=== PATIENT | female | born 1985 | race Caucasian/White ===

== ENCOUNTER 2017-09-21 08:45 | Observation (INO) | payer MEDICAID ==
[2017-09-21] MEDS ORDERED: Lactated Ringers 1,000 ML IV ONE ×2 (09:08→09:24)
--- NOTE | 2017-09-21 09:17 | ERPHSYRPT ---
- History of Present Illness Time Seen by Provider: 09/21/17 08:48 Source: patient, family (jose alejandro) Physician History: CC: fever Hx: 32 y/o with LMP in February. She is 32+4 weeks by [facility] sonogram with EDC 11-13-17. She has not yet seen Dr Jha for care due to insurance problems. She missed her 1st appt last month as she was out of town. She has 3 prior term C/S. She had 32 week abruptio with C/ S which resulted in . She has 3 day hx of fever to 101.5, chills, malaise. Right sided back pain. No dysuria. Nausea without vomiting or diarrhea. No headache, mild cough, no sore throat. Symptoms moderate. She used tylenol at home with brief relief. She has no cramping, CTX, vaginal bleeding. ALL: Bactrim, eggs Meds: PNV Surg: C/S X 4, melanoma removal from back with lymph node metastasis with resection, currently lost to follow up at [facility]- she has not seen for 1 year. ILL: Prior UTI, no hx o kidney stone disease Social: Smoker Timing/Duration: day(s) (3) Severity: moderate Allergies/Adverse Reactions: egg Allergy (Verified 09/21/17 09:22) Sulfa (Sulfonamide Antibiotics) Allergy (Verified 09/21/17 09:22) Home Medications: Vits W-Ca,Fe,FA(<1Mg) [] 1 each PO DAILY 09/21/17 [History] - Review of Systems Constitutional: Fever, Chills, Malaise Eyes: No Symptoms Ears, Nose, & Throat: No Nose Congestion, No Throat Pain Respiratory: Cough (mild) Abdominal/Gastrointestinal: Nausea, No Abdominal Pain, No Vomiting, No Diarrhea Genitourinary Symptoms: Flank Pain (right), , No Dysuria, No Vaginal Bleeding, No Vaginal Discharge Skin: No Rash Neurological: No Headache All Other Systems: Reviewed and Negative - Past Medical History Pertinent Past Medical History: Yes Other Medical History: 32 Abruptio. Metastatic melanoma - Past Surgical History Past Surgical History: Yes Female Surgical History: Section (X4) Other Surgical History: Back Melanoma resection and lymph node resection - Social History Smoking Status: Current every day smoker Patient Lives Alone: No - Nursing Vital Signs Nursing Vital Signs: Initial Vital Signs Temperature 98.1 F 09/21/17 09:01 Pulse Rate 101 H 09/21/17 09:01 Respiratory Rate 18 09/21/17 09:01 Blood Pressure 106/65 09/21/17 09:01 O2 Sat by Pulse Oximetry 99 09/21/17 09:01 Pain Scale Pain Intensity 3 - Physical Exam General Appearance: alert Eye Exam: PERRL/EOMI Ears, Nose, Throat Exam: normal ENT inspection, dry mucous membranes, No pharyngeal erythema, No tonsillar exudate Neck Exam: normal inspection, non-tender, supple Respiratory Exam: normal breath sounds, lungs clear, No respiratory distress Cardiovascular Exam: regular rate/rhythm Gastrointestinal/Abdomen Exam: soft, No tenderness, No distention, No mass, No guarding Back Exam: normal inspection, CVA tenderness (right) Extremity Exam: normal inspection, normal range of motion, No calf tenderness, No pedal edema Neurologic Exam: alert, oriented x 3, cooperative, habilitation specialist II-XII nml as tested, sensation nml, No motor deficits Skin Exam: warm, dry, No rash - Course Nursing assessment & vital signs reviewed: Yes Ordered Tests: Active Orders 24 hr Category Date Time Status Clean Catch Urine Specimen STAT Care 09/21/17 08:50 Active Heart Tones-ED STAT Care 09/21/17 08:50 Active IV Insertion STAT Care 09/21/17 09:08 Active BLOOD CULTURE Stat Lab 09/21/17 09:15 Received CBC W DIFF Stat Lab 09/21/17 09:12 Completed CMP Stat Lab 09/21/17 09:12 Completed CULTURE,URINE Stat Lab 09/21/17 09:20 Received Lactic Acid Stat Lab 09/21/17 09:15 Completed Manual Differential NC Stat Lab 09/21/17 09:12 Completed UA W/ MICROSCOPIC Stat Lab 09/21/17 09:20 Completed Urine Triage Profile Stat Lab 09/21/17 09:30 Completed Medication Summary Generic Name Dose Route Start Last Admin Trade Name Freq PRN Reason Stop Dose Admin Sodium Chloride 1,000 mls @ 999 mls/hr 09/21/17 10:01 09/21/17 10:38 Sodium Chloride 0.9% 1000 Ml IV 09/21/17 11:01 999 mls/hr .Q1H1M STA Administration Discontinued Medications Generic Name Dose Route Start Last Admin Trade Name Freq PRN Reason Stop Dose Admin Lactated Ringer's 1,000 mls @ 999 mls/hr 09/21/17 09:08 09/21/17 09:27 Lactated Ringers IV 09/21/17 10:08 999 mls/hr .Q1H1M ONE Administration Lactated Ringer's Confirm 09/21/17 09:24 Lactated Ringers Administered 09/21/17 09:25 Dose 1,000 mls @ ud IV .STK-MED ONE Ceftriaxone Sodium/Dextrose 1 g in 50 mls @ 100 mls/hr 09/21/17 10:01 10:37 Rocephin 1 Gm-D5w 50 Ml Bag IV 09/21/17 10:30 100 mls/hr STAT STA Administration Sodium Chloride Confirm 09/21/17 10:36 Sodium Chloride 0.9% 1000 Ml Administered 09/21/17 10:37 Dose 1,000 mls @ ud .ROUTE .STK-MED ONE Ceftriaxone Sodium/Dextrose Confirm 09/21/17 10:36 Rocephin 1 Gm-D5w 50 Ml Bag Administered 09/21/17 10:37 Dose 1 g in 50 mls @ ud IV .STK-MED ONE Lab/Rad Data: Laboratory Result Diagrams 09/21/17 09:12 09/21/17 09:12 Laboratory Results 09/21/17 09/21/17 09/21/17 Range/Units 09:30 09:20 09:15 WBC (4.0-10.5) K/mm3 RBC (4.1-5.4) M/mm3 Hgb (12.0-16.0) gm/dl Hct (35-47) % MCV (78-100) fl MCH (26-32) pg MCHC (32-36) g/dl RDW (11.5-14.0) % Plt Count (150-450) K/mm3 MPV (6-9.5) fl Segmented Neutrophils (36.0-66.0) % Lymphocytes (Manual) (24-44) % Monocytes (Manual) (0.0-12.0) % Eosinophils (Manual) (0.00-3.0) % Differential Comment Toxic Granulation Platelet Estimate (NORMAL) Sodium (136-145) mEq/L Potassium (3.5-5.1) mEq/L Chloride (98-107) mEq/L Carbon Dioxide (21-32) mEq/L Anion Gap (5-15) MEQ/L BUN (9-20) mg/dL Creatinine (0.55-1.30) mg/dl Estimated GFR ML/MIN Glucose (70-110) MG/DL Lactic Acid 1.5 (0.4-2.0) Calcium (8.5-10.1) mg/dL Total Bilirubin (0.2-1.0) mg/dL AST (15-37) U/L ALT (12-78) U/L Alkaline Phosphatase (46-116) U/L Serum Total Protein (6.4-8.2) gm/dL Albumin (3.4-5.0) g/dL Ur Collection Type VOID Urine Color DARK YELLOW (YELLOW) Urine Appearance HAZY (CLEAR) Urine pH 6.0 (5-6) Ur Specific [place] 1.015 (1.005-1.025) Urine Protein 2+ (Negative) Urine Ketones NEGATIVE (NEGATIVE) Urine Blood 250 (0-5) Sd/ul Urine Nitrite NEGATIVE (NEGATIVE) Urine Bilirubin SMALL (NEGATIVE) Urine Urobilinogen 4 (0-1) mg/dL Ur Leukocyte Esterase 2+ (NEGATIVE) Urine Microscopic RBC 5-10 (0-2) /HPF Urine Microscopic WBC 25-50 (0-5) /HPF Ur Epithelial Cells MANY (FEW) /HPF Urine Bacteria MODERATE (NEGATIVE) /HPF Urine Culture Reflexed YES (NO) Urine Glucose NEGATIVE (NEGATIVE) mg/dL Urine Opiates Level NEG. (NEGATIVE) Ur Methadone NEG. (NEGATIVE) Urine Barbiturates NEG. (NEGATIVE) Ur Phencyclidine (PCP) NEG. (NEGATIVE) Urine Amphetamine NEG. (NEGATIVE) U Benzodiazepine Level POS. (NEGATIVE) Urine Cocaine NEG. (NEGATIVE) Urine Marijuana (THC) POS. (NEGATIVE) Influenza Type A Ag Influenza Type B Ag RSV (PCR) (Negative) Specimen Received 09/21/17 0920 ABO Group Rh Factor Antibody Screen (NEGATIVE) 09/21/17 09/21/17 09/21/17 Range/Units 09:12 09:12 09:12 WBC 11.8 H (4.0-10.5) K/mm3 RBC 3.38 L (4.1-5.4) M/mm3 Hgb 10.5 L (12.0-16.0) gm/dl Hct 31.3 L (35-47) % MCV 92.6 (78-100) fl MCH 31.0 (26-32) pg MCHC 33.5 (32-36) g/dl RDW 13.5 (11.5-14.0) % Plt Count 84 L (150-450) K/mm3 MPV 12.2 H (6-9.5) fl Segmented Neutrophils 82 H (36.0-66.0) % Lymphocytes (Manual) 14 L (24-44) % Monocytes (Manual) 3 (0.0-12.0) % Eosinophils (Manual) 1 (0.00-3.0) % Differential Comment NORMAL Toxic Granulation 1+ Platelet Estimate DECREASED (NORMAL) Sodium (136-145) mEq/L Potassium (3.5-5.1) mEq/L Chloride (98-107) mEq/L Carbon Dioxide (21-32) mEq/L Anion Gap (5-15) MEQ/L BUN (9-20) mg/dL Creatinine (0.55-1.30) mg/dl Estimated GFR ML/MIN Glucose (70-110) MG/DL Lactic Acid (0.4-2.0) Calcium (8.5-10.1) mg/dL Total Bilirubin (0.2-1.0) mg/dL AST (15-37) U/L ALT (12-78) U/L Alkaline Phosphatase (46-116) U/L Serum Total Protein (6.4-8.2) gm/dL Albumin (3.4-5.0) g/dL Ur Collection Type Urine Color (YELLOW) Urine Appearance (CLEAR) Urine pH (5-6) Ur Specific [place] (1.005-1.025) Urine Protein (Negative) Urine Ketones (NEGATIVE) Urine Blood (0-5) Sd/ul Urine Nitrite (NEGATIVE) Urine Bilirubin (NEGATIVE) Urine Urobilinogen (0-1) mg/dL Ur Leukocyte Esterase (NEGATIVE) Urine Microscopic RBC (0-2) /HPF Urine Microscopic WBC (0-5) /HPF Ur Epithelial Cells (FEW) /HPF Urine Bacteria (NEGATIVE) /HPF Urine Culture Reflexed (NO) Urine Glucose (NEGATIVE) mg/dL Urine Opiates Level (NEGATIVE) Ur Methadone (NEGATIVE) Urine Barbiturates (NEGATIVE) Ur Phencyclidine (PCP) (NEGATIVE) Urine Amphetamine (NEGATIVE) U Benzodiazepine Level (NEGATIVE) Urine Cocaine (NEGATIVE) Urine Marijuana (THC) (NEGATIVE) Influenza Type A Ag Pending Influenza Type B Ag Pending RSV (PCR) NEGATIVE (Negative) Specimen Received ABO Group A Rh Factor POSITIVE Antibody Screen NEGATIVE (NEGATIVE) 09/21/17 Range/Units 09:12 WBC (4.0-10.5) K/mm3 RBC (4.1-5.4) M/mm3 Hgb (12.0-16.0) gm/dl Hct (35-47) % MCV (78-100) fl MCH (26-32) pg MCHC (32-36) g/dl RDW (11.5-14.0) % Plt Count (150-450) K/mm3 MPV (6-9.5) fl Segmented Neutrophils (36.0-66.0) % Lymphocytes (Manual) (24-44) % Monocytes (Manual) (0.0-12.0) % Eosinophils (Manual) (0.00-3.0) % Differential Comment Toxic Granulation Platelet Estimate (NORMAL) Sodium 138 (136-145) mEq/L Potassium 3.6 (3.5-5.1) mEq/L Chloride 104 (98-107) mEq/L Carbon Dioxide 21.9 (21-32) mEq/L Anion Gap 15.2 H (5-15) MEQ/L BUN 7 L (9-20) mg/dL Creatinine 0.76 (0.55-1.30) mg/dl Estimated GFR > 60 ML/MIN Glucose 115 H (70-110) MG/DL Lactic Acid (0.4-2.0) Calcium 8.2 L (8.5-10.1) mg/dL Total Bilirubin 0.50 (0.2-1.0) mg/dL AST 13 L (15-37) U/L ALT 13 (12-78) U/L Alkaline Phosphatase 119 H (46-116) U/L Serum Total Protein 6.3 L (6.4-8.2) gm/dL Albumin 2.4 L (3.4-5.0) g/dL Ur Collection Type Urine Color (YELLOW) Urine Appearance (CLEAR) Urine pH (5-6) Ur Specific [place] (1.005-1.025) Urine Protein (Negative) Urine Ketones (NEGATIVE) Urine Blood (0-5) Sd/ul Urine Nitrite (NEGATIVE) Urine Bilirubin (NEGATIVE) Urine Urobilinogen (0-1) mg/dL Ur Leukocyte Esterase (NEGATIVE) Urine Microscopic RBC (0-2) /HPF Urine Microscopic WBC (0-5) /HPF Ur Epithelial Cells (FEW) /HPF Urine Bacteria (NEGATIVE) /HPF Urine Culture Reflexed (NO) Urine Glucose (NEGATIVE) mg/dL Urine Opiates Level (NEGATIVE) Ur Methadone (NEGATIVE) Urine Barbiturates (NEGATIVE) Ur Phencyclidine (PCP) (NEGATIVE) Urine Amphetamine (NEGATIVE) U Benzodiazepine Level (NEGATIVE) Urine Cocaine (NEGATIVE) Urine Marijuana (THC) (NEGATIVE) Influenza Type A Ag Influenza Type B Ag RSV (PCR) (Negative) Specimen Received ABO Group Rh Factor Antibody Screen (NEGATIVE) - Progress Progress Note: 09/21/17 10:46 Stable but appears to have pyelonephritis right. She is 32 weeks , high risk with no care. Urine positive for benzo and THC which are not reported to be prescribed. CAlled Dr Blackburn (oc) and will place in obs for NST, IV abtx, IVF. Discussed with : Alexey Will see patient in: hospital (observation) Counseled pt/family regarding: lab results, diagnosis, need for follow-up - Departure Time of Disposition: 10:47 Departure Disposition: Observation Clinical Impression: Pyelonephritis affecting in third trimester, No care in current , Polysubstance abuse, Thrombocytopenia affecting Condition: Fair Critical Care Time: No
[2017-09-21 09:22] VITALS: O2SAT 99
[2017-09-21 09:36] LABS: Mean Cell Volume 92.6 fl (78-100); Mean Platelet Volume 12.2 fl (6-9.5); Platelet Count 84 K/mm3 (150-450); Red Blood Count 3.38 M/mm3 (4.1-5.4); Red Cell Distribution Width 13.5 % (11.5-14.0); White Blood Count 11.8 K/mm3 (4.0-10.5)
[2017-09-21 09:45] LABS: ADD URINE CULTURE? YES (NO); Bacteria MODERATE /HPF (NEGATIVE); Bilirubin SMALL (NEGATIVE); Blood 250 Ery/ul (0-5); COMPLETE URINE MICROSCOPIC? YES; Collection Type VOID; Epithelial Cells MANY /HPF (FEW); Glucose NEGATIVE (NEGATIVE); Leukocyte Esterase 2+ (NEGATIVE); WBC 25-50 /HPF (0-5)
[2017-09-21 09:57] LABS: ALBUMIN 2.4 g/dL (3.4-5.0); ALKALINE PHOSPHATASE 119 U/L (46-116); ANION GAP 15.2 MEQ/L (5-15); BLOOD UREA NITROGEN 7 mg/dL (9-20); CHLORIDE 104 mEq/L (98-107); Carbon Dioxide 21.9 mEq/L (21-32); Glucose 115 MG/DL (70-110); Potassium 3.6 mEq/L (3.5-5.1); SGOT/AST 13 U/L (15-37); SGPT/ALT 13 U/L (12-78); SODIUM 138 mEq/L (136-145); Total Protein 6.3 gm/dL (6.4-8.2)
[2017-09-21 10:01] LABS: Eosinophil 1 % (0.00-3.0); Platelet Estimate DECREASED (NORMAL); Total Cells Counted 100; Toxic Granulation 1+
[2017-09-21] MEDS ORDERED: Sodium Chloride 0.9% 1000 ML 1,000 ML IV STA (10:01)
[2017-09-21] MEDS ORDERED: ROCEPHIN 1 Gm-D5w 50 ml Bag** 1 G/50 ML IVPB IV STA (10:01)
[2017-09-21] MEDS ORDERED: Sodium Chloride 0.9% 1000 ML 1,000 ML ONE ×2 (10:36→18:56)
[2017-09-21] MEDS ORDERED: ROCEPHIN 1 Gm-D5w 50 ml Bag** 1 G/50 ML IVPB IV ONE (10:36)
[2017-09-21] MEDS ORDERED: D5W/0.45NS W/ 20mEq KCl 1000 ML 1,000 ML IV SCH (11:53)
[2017-09-21] MEDS ORDERED: TYLENOL 325 MG PO PRN (11:53)
[2017-09-21] MEDS ORDERED: MORPHINE SULFATE 4 MG INJ IV PRN (13:22)
[2017-09-21] MEDS: Zofran 4 MG/2 ML VIAL IV PRN ×2 (16:06→21:55)
--- NOTE | 2017-09-21 18:40 | PCM.HP ---
History of Present Illness - Chief Complaint Chief Complaint: pyelonephritis History of Present Illness: is a 32 year old female who presented to the ER today with a known 32 weeks , she has received no care. She has had severe right flank pain and fever, some nausea, vomited x 1 today. She denies dysuria, hx of 3 prior sections and a placental abruption at 32 weeks. She states she has not been seen due to insurance reasons. states she has anxiety and has been on klonopin for a long time, sounds like she is not currently prescribed it but admits to taking some about a week ago, triage + benzos and marijuana. - Review of Systems Constitutional: Fever, Chills Cardiac: No Chest Pain, No Edema, No Syncope Abdominal/Gastrointestinal: No Abdominal Pain, No Nausea, No Vomiting, No Diarrhea Genitourinary Symptoms: Flank Pain, No Dysuria, No Frequency Skin: No Rash Medications & Allergies Home Medications: Home Medication List Vits W-Ca,Fe,FA(<1Mg) [] 1 each PO DAILY 09/21/17 [History Confirmed 09/21/17] Allergies/Adverse Reactions: Allergies Allergy/AdvReac Type Severity Reaction Status Date / Time egg Allergy Verified 09/21/17 09:22 Sulfa (Sulfonamide Allergy Verified 09/21/17 09:22 Antibiotics) sulfamethoxazole Allergy Verified 09/21/17 13:23 [From Bactrim] trimethoprim [From Bactrim] Allergy Verified 09/21/17 13:23 - Past Medical History Past Medical History: Yes Pyscho-Social History: Anxiety, Depression Comment: 32 Abruptio. Metastatic melanoma - Female History Hx Last Menstrual Period: 02/11/17 Are you now?: Yes Expected Date of Delivery: 11/13/17 - Past Surgical History Past Surgical History: Yes Female Surgical History: Section Other Surgical History: Back Melanoma resection and lymph node resection - Social History Smoking Status: Current some day smoker How long have you smoked: 6years Exposure to second hand smoke: No Alcohol: None Drug Use: none - Physical Exam Vital Signs: Vital Signs - 24 hr Temp Pulse Resp BP BP Pulse Ox 09/21/17 15:15 99.9 F 107 H 18 105/88 09/21/17 12:40 99.0 F 92 H 18 122/62 09/21/17 12:25 99.0 F 92 H 18 122/62 09/21/17 11:20 84 18 104/57 09/21/17 10:02 84 18 106/59 09/21/17 09:01 98.1 F 101 H 18 106/65 99 General Appearance: no apparent distress, alert Eye Exam: PERRL/EOMI, eyes nml inspection Respiratory Exam: normal breath sounds, lungs clear, No respiratory distress Cardiovascular Exam: regular rate/rhythm, normal heart sounds, normal peripheral pulses Gastrointestinal/Abdomen Exam: soft (gravid), normal bowel sounds, No tenderness , No mass Back Exam: CVA tenderness (right) Skin Exam: normal color, warm, dry, No rash Assessment/Plan (1) Pyelonephritis affecting in third trimester Current Visit: Yes Status: Acute Assessment & Plan: continue IV fluids and rocephin, await urine culture. Code(s): O23.03 - INFECTIONS OF KIDNEY IN , THIRD TRIMESTER (2) No care in current Current Visit: Yes Status: Acute Code(s): O09.30 - SUPRVSN OF PREG W INSUFFICIENT ANTENAT CARE, UNSP TRIMESTER (3) Polysubstance abuse Current Visit: Yes Status: Acute Assessment & Plan: discussed use, patient claims rare/intermittent use and no concern for withdrawal, will observe closely. discussed risks in , OB u/s ordered. Code(s): F19.10 - OTHER PSYCHOACTIVE SUBSTANCE ABUSE, UNCOMPLICATED
[2017-09-21] MEDS: Morphine PCA 1 MG/ML 30 ML IV PRN (19:48)
[2017-09-21] MEDS: Sodium Chloride 0.9% 1000 ML 1,000 ML IV SCH (19:54)
[2017-09-21 23:22] LABS: CHLAMYDIA URINE NEGATIVE; GC URINE NEGATIVE
[2017-09-22 05:22] LABS: Mean Cell Volume 93.5 fl (78-100); Mean Corpuscular Hemoglobin 30.7 pg (26-32); Platelet Count 84 K/mm3 (150-450); Red Blood Count 2.93 M/mm3 (4.1-5.4); Red Cell Distribution Width 13.4 % (11.5-14.0); White Blood Count 8.3 K/mm3 (4.0-10.5)
[2017-09-22 06:07] LABS: ALBUMIN 1.9 g/dL (3.4-5.0); ALKALINE PHOSPHATASE 104 U/L (46-116); ANION GAP 11.2 MEQ/L (5-15); BLOOD UREA NITROGEN 7 mg/dL (9-20); CHLORIDE 106 mEq/L (98-107); Carbon Dioxide 24.2 mEq/L (21-32); Glucose 89 MG/DL (70-110); Potassium 3.9 mEq/L (3.5-5.1); SGOT/AST 10 U/L (15-37); SGPT/ALT 8 U/L (12-78); SODIUM 138 mEq/L (136-145); Total Protein 5.4 gm/dL (6.4-8.2)
[2017-09-22 08:33] LABS: ANISOCYTOSIS 1+; Platelet Estimate DECREASED (NORMAL); Total Cells Counted 100; Toxic Granulation 1+
--- NOTE | 2017-09-22 08:57 | XRAY ---
Indication: Right pyelonephritis. No care. Two-dimensional OB ultrasound performed. Comparison: None There is a single viable intrauterine currently in cephalic presentation. Normal four-chamber heart with heart rate 145 BPM. Normal three-vessel cord and cord insertion. Visualized head, spine, stomach, kidneys, and bladder unremarkable. Placenta is anterior without abruption/previa. BPD measures 8.21 cm corresponding to 33 weeks 0 days. HC measures 29.24 cm corresponding to 32 weeks 2 days. AC measures 28.28 cm corresponding to 32 weeks 2 days. FL measures 6.31 cm corresponding to 32 weeks 4 days. EDDI is 15 cm. Impression: Single viable intrauterine with mean gestational age 32 weeks 4 days. Expected date confinement is November 12, 2017. Comment: Preliminary report was given.
--- NOTE | 2017-09-22 08:58 | XRAY ---
Indication: Right pyelonephritis. . Two-dimensional renal sonogram performed. Comparison: None Right kidney measures 12.5 x 6.7 x 4.7 cm and the left measures 12.7 x 5.2 x 5.3 cm. Right kidney demonstrates wedge-shaped cortical hypoechogenicities with hyperemic color Doppler flow favoring focal pyelonephritis. Right kidney also demonstrates mild hydronephrosis and tiny perinephric fluid. Left kidney demonstrates 1.2 cm lower pole cyst. Images of the urinary bladder grossly unremarkable. Impression: 1. Sonographic features as detailed favoring right renal pyelonephritis with tiny perinephric fluid. Also mild hydronephrosis of . 2. Left renal cyst. Comment: Preliminary report was given.
[2017-09-22] MEDS: ROCEPHIN 1 Gm-D5w 50 ml Bag** 1 G/50 ML IVPB IV SCH (10:02)
--- NOTE | 2017-09-22 11:52 | PCM.NOTE ---
Date and Time: 09/22/17 1150 Subjective Assessment: patient feeling a little better today, still having some flank pain. no fever today, tolerating po intake Objective Exam General Appearance: no apparent distress, alert Respiratory Exam: normal breath sounds, lungs clear, No respiratory distress Cardiovascular Exam: regular rate/rhythm, normal heart sounds Gastrointestinal/Abdomen Exam: soft, No tenderness, No mass Back Exam: CVA tenderness OBJECTIVE DATA Vital Signs: Vital Signs - 24 hr Temp Pulse Resp BP BP 09/22/17 09:00 98.7 F 97 H 18 103/56 09/22/17 03:00 97.5 F 73 18 105/57 09/21/17 21:00 98.2 F 89 18 101/64 09/21/17 15:15 99.9 F 107 H 18 105/88 09/21/17 12:40 99.0 F 92 H 18 122/62 09/21/17 12:25 99.0 F 92 H 18 122/62 Pain Assessment - Last Documented Pain Intensity 6 Pain Scale Used Ash Solis,FLACC Intake and Output: Intake & Output 09/19/17 09/20/17 09/21/17 09/22/17 11:59 11:59 11:59 11:59 Intake Total 2491 Balance 2491 Weight 78.018 kg Lab Results: Lab Results-Last 24 Hours 09/21/17 09/22/17 09/22/17 Range/Units 20:30 05:19 05:19 WBC 8.3 (4.0-10.5) K/mm3 RBC 2.93 L (4.1-5.4) M/mm3 Hgb 9.0 L (12.0-16.0) gm/dl Hct 27.4 L (35-47) % MCV 93.5 (78-100) fl MCH 30.7 (26-32) pg MCHC 32.8 (32-36) g/dl RDW 13.4 (11.5-14.0) % Plt Count 84 L (150-450) K/mm3 MPV 12.0 H (6-9.5) fl Segmented Neutrophils 71 H (36.0-66.0) % Lymphocytes (Manual) 21 L (24-44) % Monocytes (Manual) 8 (0.0-12.0) % Differential Comment ABNORMAL Toxic Granulation 1+ Platelet Estimate DECREASED (NORMAL) Anisocytosis 1+ Sodium 138 (136-145) mEq/L Potassium 3.9 (3.5-5.1) mEq/L Chloride 106 (98-107) mEq/L Carbon Dioxide 24.2 (21-32) mEq/L Anion Gap 11.2 (5-15) MEQ/L BUN 7 L (9-20) mg/dL Creatinine 0.73 (0.55-1.30) mg/dl Estimated GFR > 60 ML/MIN Glucose 89 (70-110) MG/DL Calcium 7.6 L (8.5-10.1) mg/dL Total Bilirubin 0.30 (0.2-1.0) mg/dL AST 10 L (15-37) U/L ALT 8 L (12-78) U/L Alkaline Phosphatase 104 (46-116) U/L Serum Total Protein 5.4 L (6.4-8.2) gm/dL Albumin 1.9 L (3.4-5.0) g/dL Ur Chlamydia DNA Probe NEGATIVE Urine GC DNA Probe NEGATIVE Assessment/Plan (1) Pyelonephritis affecting in third trimester Current Visit: Yes Status: Acute Assessment & Plan: continue rocephin, c and s pending. Code(s): O23.03 - INFECTIONS OF KIDNEY IN , THIRD TRIMESTER (2) No care in current Current Visit: Yes Status: Acute Assessment & Plan: ob u/s with no abnormalities Code(s): O09.30 - SUPRVSN OF PREG W INSUFFICIENT ANTENAT CARE, UNSP TRIMESTER (3) Polysubstance abuse Current Visit: Yes Status: Acute Code(s): F19.10 - OTHER PSYCHOACTIVE SUBSTANCE ABUSE, UNCOMPLICATED
[2017-09-22] MEDS: Morphine PCA 1 MG/ML 30 ML IV PRN (17:03)
[2017-09-22] MEDS: Sodium Chloride 0.9% 1000 ML 1,000 ML IV SCH (17:04)
[2017-09-22] MEDS: Colace 100 MG PO SCH (21:55)
[2017-09-22] MEDS: FEOSOL 325 MG PO SCH (21:55)
[2017-09-23] MEDS ORDERED: Norco 10/325 MG Tablet PO PRN (08:29)
--- NOTE | 2017-09-23 08:35 | PCM.NOTE ---
Date and Time: 09/23/17 0830 Subjective Assessment: SHe is still having 5/10 R flank pain better with morphine FLOORPERSON. Had morphine about 10 times overnight. Denies nausea. Tolerating po. - Review of Systems Constitutional: No Fever Abdominal/Gastrointestinal: Other (flank pain) Objective Exam General Appearance: no apparent distress, alert Neurologic Exam: oriented x 3, cooperative Skin Exam: warm, dry Respiratory Exam: normal breath sounds, No lungs clear, No crackles/rales, No rhonchi, No wheezing Cardiovascular Exam: regular rate/rhythm, normal heart sounds, No murmur Gastrointestinal/Abdomen Exam: soft, other (gravid), No normal bowel sounds Extremity Exam: No pedal edema, No swelling (ELVA hose in place) Back Exam: CVA tenderness (on R) OBJECTIVE DATA Vital Signs: Vital Signs - 24 hr Temp Pulse Resp BP 09/23/17 03:00 71 18 98/58 09/22/17 20:00 97.8 F 86 18 103/60 09/22/17 09:00 98.7 F 97 H 18 103/56 Pain Assessment - Last Documented Pain Intensity 2 Pain Scale Used Ash Faces,FLACC Intake and Output: Intake & Output 09/20/17 09/21/17 09/22/17 09/23/17 11:59 11:59 11:59 11:59 Intake Total 2491 5689 Balance 2491 5689 Weight 78.018 kg Lab Results: Lab Results-Last 24 Hours 09/22/17 Range/Units 05:19 Segmented Neutrophils 71 H (36.0-66.0) % Lymphocytes (Manual) 21 L (24-44) % Monocytes (Manual) 8 (0.0-12.0) % Differential Comment ABNORMAL Toxic Granulation 1+ Platelet Estimate DECREASED (NORMAL) Anisocytosis 1+ Assessment/Plan (1) Pyelonephritis affecting in third trimester Current Visit: Yes Status: Acute Assessment & Plan: on IV rocephin. UCx with probable skin rory. She is still having quite a bit of pain -try treating with po pain meds today. Code(s): O23.03 - INFECTIONS OF KIDNEY IN , THIRD TRIMESTER (2) Polysubstance abuse Current Visit: Yes Status: Acute Code(s): F19.10 - OTHER PSYCHOACTIVE SUBSTANCE ABUSE, UNCOMPLICATED (3) No care in current Current Visit: Yes Status: Acute Qualifiers: Trimester: third trimester Qualified Code(s): O09.33 - Supervision of with insufficient care, third trimester Assessment & Plan: Coming to see me in follow up outpatient. Code(s): O09.30 - SUPRVSN OF PREG W INSUFFICIENT ANTENAT CARE, UNSP TRIMESTER (4) Thrombocytopenia affecting Current Visit: Yes Status: Acute Assessment & Plan: Recheck today. Unsure if this is chronic. Code(s): O99.119 - OTH DIS OF BLD/BLD-FORM ORG/IMMUN MECHNSM COMP PREG,UNSP TRI ; D69.6 - THROMBOCYTOPENIA, UNSPECIFIED
[2017-09-23] MEDS: FEOSOL 325 MG PO SCH (09:05)
[2017-09-23] MEDS: Colace 100 MG PO SCH (09:05)
[2017-09-23] MEDS: ROCEPHIN 1 Gm-D5w 50 ml Bag** 1 G/50 ML IVPB IV SCH (09:05)
[2017-09-23 09:11] LABS: BASOPHIL % 0.1 % (0.0-0.4); Eosinophil % 1.6 % (0.00-5.0); Granulocytes % 77.5 % (36.0-66.0); Lymphocytes % 15.7 % (24.0-44.0); Mean Cell Volume 92.9 fl (78-100); Mean Platelet Volume 11.8 fl (6-9.5); Monocytes % 5.1 % (0.0-12.0); Platelet Count 102 K/mm3 (150-450); Red Cell Distribution Width 13.4 % (11.5-14.0); White Blood Count 7.6 K/mm3 (4.0-10.5)
[2017-09-23 09:40] LABS: ALBUMIN 2.2 g/dL (3.4-5.0); ALKALINE PHOSPHATASE 131 U/L (46-116); ANION GAP 11.6 MEQ/L (5-15); BLOOD UREA NITROGEN 6 mg/dL (9-20); CHLORIDE 103 mEq/L (98-107); Carbon Dioxide 26.4 mEq/L (21-32); Glucose 115 MG/DL (70-110); Potassium 3.7 mEq/L (3.5-5.1); SGOT/AST 12 U/L (15-37); SGPT/ALT 11 U/L (12-78); SODIUM 137 mEq/L (136-145); Total Protein 6.3 gm/dL (6.4-8.2)
[2017-09-23] MEDS: Zofran 4 MG/2 ML VIAL IV PRN (09:45)
[2017-09-23 09:52] LABS: Mean Corpuscular Hemoglobin 30.5 pg (26-32)
[2017-09-23 11:18] VITALS: BP 99/65; PULSE 88
[2017-09-25 12:50] LABS: Hepatitis B Sur Ag Screen Reac-confirmed (Non Reactive)
== END 2017-09-23 14:25 | disposition home or self-care (01) ==
LOC: ED 08:45 → MED SURG 11:31
PROVIDERS: ADMIT Family Medicine; ATTEND Family Medicine
DX: O23.03 Infections of kidney in pregnancy, third trimester (principal); O09.33 Supervision of pregnancy with insufficient antenatal care, third trimester; Z3A.32 32 weeks gestation of pregnancy; F19.10 Other psychoactive substance abuse, uncomplicated; F41.8 Other specified anxiety disorders; Z72.0 Tobacco use
CPT/HCPCS: 36000; 36415; 59025; 76770; 76805; 80053; 80055; 80307; 81000; 83605; 85025; 87040; 87086; 87491; 87591; 87631; 96360; 96361; 96365; 99285; G0378; J0696; J2270; J2405; A9270-GY

== ENCOUNTER 2017-10-01 13:44 | Observation (INO) | payer MEDICAID ==
[2017-10-01] MEDS ORDERED: Lactated Ringers 1,000 ML IV SCH (14:00)
[2017-10-01 14:14] LABS: Mean Cell Volume 91.3 fl (78-100); Mean Corpuscular Hemoglobin 30.4 pg (26-32); Mean Platelet Volume 10.7 fl (6-9.5); Platelet Count 206 K/mm3 (150-450); Red Blood Count 3.32 M/mm3 (4.1-5.4); Red Cell Distribution Width 13.3 % (11.5-14.0); White Blood Count 13.5 K/mm3 (4.0-10.5)
[2017-10-01 14:39] LABS: ALBUMIN 2.6 g/dL (3.4-5.0); ALKALINE PHOSPHATASE 127 U/L (46-116); ANION GAP 13.3 MEQ/L (5-15); BLOOD UREA NITROGEN 11 mg/dL (9-20); CHLORIDE 103 mEq/L (98-107); Carbon Dioxide 24.1 mEq/L (21-32); Glucose 93 MG/DL (70-110); Potassium 3.7 mEq/L (3.5-5.1); SGOT/AST 12 U/L (15-37); SGPT/ALT 16 U/L (12-78); SODIUM 137 mEq/L (136-145); Total Protein 6.6 gm/dL (6.4-8.2)
[2017-10-01 16:24] LABS: Eosinophil 1 % (0.00-3.0); Total Cells Counted 100
[2017-10-01 16:25] LABS: Platelet Estimate NORMAL (NORMAL); Toxic Granulation 1+
[2017-10-01] MEDS: Lactated Ringers 1,000 ML IV SCH (16:46)
[2017-10-01] MEDS: Norco 10/325 MG Tablet PO PRN ×2 (18:04→22:28)
[2017-10-01] MEDS ORDERED: Zofran 4 MG/2 ML VIAL IV PRN (20:53)
[2017-10-01] MEDS ORDERED: Invanz 1 GM*** 1 G in Sodium Chloride 100ML MINI-BAG PLUS 100 ML IV SCH (21:00)
[2017-10-02] MEDS: Lactated Ringers 1,000 ML IV SCH ×2 (00:16→08:56)
[2017-10-02 06:24] LABS: ANION GAP 13.9 MEQ/L (5-15); BLOOD UREA NITROGEN 6 mg/dL (9-20); CHLORIDE 104 mEq/L (98-107); Carbon Dioxide 24.1 mEq/L (21-32); Glucose 81 MG/DL (70-110); SODIUM 138 mEq/L (136-145)
[2017-10-02 06:28] LABS: BASOPHIL % 0.2 % (0.0-0.4); Eosinophil % 1.8 % (0.00-5.0); Granulocytes % 66.9 % (36.0-66.0); Lymphocytes % 26.3 % (24.0-44.0); Mean Cell Volume 92.7 fl (78-100); Mean Platelet Volume 11.1 fl (6-9.5); Monocytes % 4.8 % (0.0-12.0); Platelet Count 163 K/mm3 (150-450); Red Blood Count 3.16 M/mm3 (4.1-5.4); Red Cell Distribution Width 13.5 % (11.5-14.0); White Blood Count 10.8 K/mm3 (4.0-10.5)
[2017-10-02 06:57] LABS: Mean Corpuscular Hemoglobin 30.3 pg (26-32)
[2017-10-02] MEDS: Norco 10/325 MG Tablet PO PRN ×2 (07:37→12:16)
--- NOTE | 2017-10-02 08:46 | PCM.DS ---
Discharge Summary Date of Admission: 10/01/17 13:44 Admitting Physician: CANDY BARFIELD Primary Care Provider: CANDY BARFIELD Allergies Allergies egg Allergy (Verified 09/21/17 09:22) Sulfa (Sulfonamide Antibiotics) Allergy (Verified 09/21/17 09:22) sulfamethoxazole [From Bactrim] Allergy (Verified 09/21/17 13:23) trimethoprim [From Bactrim] Allergy (Verified 09/21/17 13:23) Hospital Summary - Hospital Course Hospital Course: She was admitted from the office with recurring sx of her recent pyelonephritis - back pain, fatigue, fever, nausea. She was treated with rocephin and the culture was negative. She was admitted for IV antibiotics yesterday, however mistakenly they were not ordered until last night. Her WBC were 13.5 yesterday and 10.8 this morning. She is feeling better. Renal u/s done this morning. Will be discharged after getting PICC line placed today as her IV access was quite difficult. - Vitals & Intake/Output Vital Signs: Vital Signs Temperature 98 F 10/02/17 07:00 Pulse Rate 68 10/02/17 07:00 Respiratory Rate 20 10/02/17 07:00 Blood Pressure 125/59 10/02/17 07:00 O2 Sat by Pulse Oximetry 98 10/02/17 07:00 Intake & Output: Intake & Output 09/29/17 09/30/17 10/01/17 10/02/17 11:59 11:59 11:59 11:59 Intake Total 1949 Output Total 1000 Balance 949 Weight 90.038 kg - Lab Result Diagrams: 10/02/17 05:25 10/02/17 05:25 Lab Results-Last 24 Hrs: Lab Results-Last 24 Hours 10/01/17 10/01/17 10/01/17 Range/Units 14:08 14:08 14:08 WBC 13.5 H (4.0-10.5) K/mm3 RBC 3.32 L (4.1-5.4) M/mm3 Hgb 10.1 L (12.0-16.0) gm/dl Hct 30.3 L (35-47) % MCV 91.3 (78-100) fl MCH 30.4 (26-32) pg MCHC 33.3 (32-36) g/dl RDW 13.3 (11.5-14.0) % Plt Count 206 (150-450) K/mm3 MPV 10.7 H (6-9.5) fl Gran % (36.0-66.0) % Lymphocytes % (24.0-44.0) % Monocytes % (0.0-12.0) % Eosinophils % (0.00-5.0) % Basophils % (0.0-0.4) % Segmented Neutrophils 77 H (36.0-66.0) % Lymphocytes (Manual) 19 L (24-44) % Monocytes (Manual) 3 (0.0-12.0) % Eosinophils (Manual) 1 (0.00-3.0) % Basophils # (0-0.4) Differential Comment NORMAL Toxic Granulation 1+ Platelet Estimate NORMAL (NORMAL) Sodium 137 (136-145) mEq/L Potassium 3.7 (3.5-5.1) mEq/L Chloride 103 (98-107) mEq/L Carbon Dioxide 24.1 (21-32) mEq/L Anion Gap 13.3 (5-15) MEQ/L BUN 11 (9-20) mg/dL Creatinine 0.78 (0.55-1.30) mg/dl Estimated GFR > 60 ML/MIN Glucose 93 (70-110) MG/DL Calcium 9.0 (8.5-10.1) mg/dL Total Bilirubin 0.30 (0.2-1.0) mg/dL AST 12 L (15-37) U/L ALT 16 (12-78) U/L Alkaline Phosphatase 127 H (46-116) U/L Serum Total Protein 6.6 (6.4-8.2) gm/dL Albumin 2.6 L (3.4-5.0) g/dL Influenza Type A Ag NEGATIVE (NEGATIVE) Influenza Type B Ag NEGATIVE (NEGATIVE) RSV (PCR) NEGATIVE (Negative) 10/02/17 10/02/17 Range/Units 05:25 05:25 WBC 10.8 H (4.0-10.5) K/mm3 RBC 3.16 L (4.1-5.4) M/mm3 Hgb 9.6 L (12.0-16.0) gm/dl Hct 29.3 L (35-47) % MCV 92.7 (78-100) fl MCH 30.3 (26-32) pg MCHC 32.8 (32-36) g/dl RDW 13.5 (11.5-14.0) % Plt Count 163 (150-450) K/mm3 MPV 11.1 H (6-9.5) fl Gran % 66.9 H (36.0-66.0) % Lymphocytes % 26.3 (24.0-44.0) % Monocytes % 4.8 (0.0-12.0) % Eosinophils % 1.8 (0.00-5.0) % Basophils % 0.2 (0.0-0.4) % Segmented Neutrophils (36.0-66.0) % Lymphocytes (Manual) (24-44) % Monocytes (Manual) (0.0-12.0) % Eosinophils (Manual) (0.00-3.0) % Basophils # 0.02 (0-0.4) Differential Comment Toxic Granulation Platelet Estimate (NORMAL) Sodium 138 (136-145) mEq/L Potassium 4.0 (3.5-5.1) mEq/L Chloride 104 (98-107) mEq/L Carbon Dioxide 24.1 (21-32) mEq/L Anion Gap 13.9 (5-15) MEQ/L BUN 6 L (9-20) mg/dL Creatinine 0.70 (0.55-1.30) mg/dl Estimated GFR > 60 ML/MIN Glucose 81 (70-110) MG/DL Calcium 8.2 L (8.5-10.1) mg/dL Total Bilirubin (0.2-1.0) mg/dL AST (15-37) U/L ALT (12-78) U/L Alkaline Phosphatase (46-116) U/L Serum Total Protein (6.4-8.2) gm/dL Albumin (3.4-5.0) g/dL Influenza Type A Ag (NEGATIVE) Influenza Type B Ag (NEGATIVE) RSV (PCR) (Negative) - Radiology Exams Ordered Rad Exams-Entire Visit: Radiology Procedures Category Date Time Status KIDNEY [US] Routine Exams 10/02/17 Ordered PICC LINE PLACEMENT Routine Exams 10/02/17 Ordered Discharge Exam General Appearance: no apparent distress, alert Neurologic Exam: oriented x 3, cooperative Skin Exam: normal color, warm, dry Respiratory Exam: normal breath sounds, lungs clear, No crackles/rales, No rhonchi, No wheezing Cardiovascular Exam: regular rate/rhythm, normal heart sounds, No murmur Gastrointestinal/Abdomen Exam: soft, normal bowel sounds, other (gravid) Extremity Exam: No pedal edema, No swelling Back Exam: normal inspection Final Diagnosis/Problem List - Final Discharge Diagnosis/Problem (1) Pyelonephritis affecting in third trimester Current Visit: No Status: Acute Assessment & Plan: Will treat for 7 days on Invanz as the coverage is broader than the rocephin. Her sx are better less than 24 hours after being treated with her first dose of Invanz. - Discharge Disposition: Home, Self-Care Condition: Stable Prescriptions: New Ertapenem Sodium 1 gm [Invanz 1 GM] 1 g IV Q24H #6 vial Hydrocodone/APAP 10/325 mg [[place] 10/325 MG Tablet] 1 tab PO QID PRN # 30 tablet PRN Reason: Pain Ondansetron [Zofran Odt] 4 mg PO BID PRN #10 tab.rapdis PRN Reason: Nausea Continue Vits W-Ca,Fe,FA(<1Mg) [] 1 each PO DAILY Follow up with: CANDY BARFIELD [Primary Care Provider] - 1 Week
--- NOTE | 2017-10-02 08:57 | XRAY ---
Indication: Low back pain. Hydronephrosis. Third trimester . Two-dimensional renal sonogram performed. Comparison: None Right kidney measures 12.6 x 4.7 x 4.5 cm and the left kidney measures 12.8 x 5.6 x 5.9 cm. Right kidney again demonstrates mild hydronephrosis today without perinephric fluid. Previous wedge-shaped cortical hypoechogenicity in the right mid kidney has resolved. Stable 1.4 cm left lower pole cyst. Images of the urinary bladder demonstrates normal left ureteral jet. Right ureteral jet not seen within the allotted exam time. Impression: 1. Stable mild right hydronephrosis of and a left renal cyst. 2. Previous right renal cortical hypodensity resolved.
[2017-10-02] MEDS ORDERED: NON-FORMULARY ITEM (Prenatal Vits W-Ca,Fe,Fa(<1mg) [Prenatal] 1 EACH) PO SCH (10:00)
[2017-10-02] MEDS ORDERED: THERAGRAN MULTIVITAMIN PO SCH (10:00)
[2017-10-02 11:38] VITALS: BP 106/58; PULSE 73; O2SAT 97
--- NOTE | 2017-10-02 11:47 | XRAY ---
Indication: Ultrasound guidance for PICC line placement. Initial sonographic imaging of the right upper extremity was performed for localization of patent veins. A patent basilic vein identified above the elbow. Ultrasound guidance was then used for PICC line insertion. Full PICC line insertion is reported separately.
--- NOTE | 2017-10-02 11:49 | XRAY ---
Indication: Third trimester . History renal infection. Poor venous access. Long-term IV access and therapy. Informed consent obtained. Patient was placed on the fluoroscopic table in a supine position. Initial sonographic imaging of the right upper extremity was performed for localization of patent veins. The right upper extremity was then prepped and draped in sterile fashion. Tourniquet applied. 1% lidocaine plain used for local anesthesia. Using ultrasound guidance and a micropuncture needle, a basilic vein above the elbow was successfully percutaneously cannulized. A floppy tip 0.018 guidewire inserted. Tourniquet released. Needle was exchanged for a 5 [place] dilator peel-away sheath catheter. Ultimately a 5 [place] double-lumen PICC line was inserted over a longer 0.018 guidewire with the tip positioned in the distal SVC using fluoroscopic guidance. Guidewire removed. Both ports flushed with heparinized saline. Catheter was secured. Postoperative instructions and orders given. Patient discharged in good condition. Impression: Technically successful right upper extremity PICC line placement using ultrasound and fluoroscopic guidance. No immediate complications. Approximately 1 cc blood loss. Approximately 0.1 minute of fluoroscopy used. Catheter length is 41 cm.
--- NOTE | 2017-10-02 11:51 | PCM.DCORD ---
- Discharge Disposition: Home, Self-Care Condition: Stable Prescriptions: New Ertapenem Sodium 1 gm [Invanz 1 GM] 1 g IV Q24H #6 vial Hydrocodone/APAP 10/325 mg [[place] 10/325 MG Tablet] 1 tab PO QID PRN # 30 tablet PRN Reason: Pain Ondansetron [Zofran Odt] 4 mg PO BID PRN #10 tab.rapdis PRN Reason: Nausea Continue Vits W-Ca,Fe,FA(<1Mg) [] 1 each PO DAILY Instructions: Kidney Infection Additional Instructions: COME TO [facility] - OUTPATIENT INFUSION STARTING TOMORROW. ARRIVE AT 12:45 PM TO REGISTER FOR YOUR 1:00 PM APPOINTMENT. YOU WILL COME DAILY FOR THE NEXT 5 DAYS. Follow up with: CANDY BARFIELD [Primary Care Provider] - 10/11/17 10:45 am
[2017-10-02] MEDS ORDERED: Invanz 1 GM*** 1 G in Sodium Chloride 100ML MINI-BAG PLUS 100 ML IV SCH (12:00)
== END 2017-10-02 13:35 | disposition home or self-care (01) ==
LOC: MED SURG 13:44
PROVIDERS: ADMIT Family Medicine; ATTEND Family Medicine
DX: O23.03 Infections of kidney in pregnancy, third trimester (principal); Z3A.32 32 weeks gestation of pregnancy; Z72.0 Tobacco use
CPT/HCPCS: 36415; 36569; 76770; 76937; 77001; 80048; 80053; 85025; 87631; C1769; G0378; J1335; J1642; A9270-GY

== ENCOUNTER 2017-10-22 10:06 | Observation (INO) | payer MEDICAID ==
[2017-10-22] MEDS ORDERED: Lactated Ringers 1,000 ML IV SCH ×2 (10:30→12:00)
[2017-10-22 10:47] LABS: BASOPHIL % 0.1 % (0.0-0.4); Eosinophil % 1.6 % (0.00-5.0); Granulocytes % 72.3 % (36.0-66.0); Lymphocytes % 21.6 % (24.0-44.0); Mean Cell Volume 92.6 fl (78-100); Mean Corpuscular Hemoglobin 30.9 pg (26-32); Mean Platelet Volume 11.7 fl (6-9.5); Monocytes % 4.4 % (0.0-12.0); Platelet Count 179 K/mm3 (150-450); Red Blood Count 3.91 M/mm3 (4.1-5.4); Red Cell Distribution Width 14.1 % (11.5-14.0); White Blood Count 10.9 K/mm3 (4.0-10.5)
[2017-10-22 11:26] LABS: ALBUMIN 2.9 g/dL (3.4-5.0); ALKALINE PHOSPHATASE 110 U/L (46-116); ANION GAP 11.2 MEQ/L (5-15); BLOOD UREA NITROGEN 8 mg/dL (9-20); CHLORIDE 104 mEq/L (98-107); Carbon Dioxide 24.1 mEq/L (21-32); Glucose 79 MG/DL (70-110); Potassium 4.4 mEq/L (3.5-5.1); SGOT/AST 18 U/L (15-37); SGPT/ALT 15 U/L (12-78); SODIUM 135 mEq/L (136-145)
[2017-10-22] MEDS ORDERED: DIFLUCAN PO ONE (12:30)
--- NOTE | 2017-10-22 12:59 | XRAY ---
Indication: well-being. Two-dimensional OB ultrasound performed. Comparison: September 21, 2017. Again there is a single viable intrauterine in cephalic presentation. Normal four-chamber heart with heart rate 125 BPM. Normal three-vessel cord and cord insertion previous see documented. Visualized stomach and bladder unremarkable. Placenta is again anterior without abruption/previa. BPD measures 8.65 cm corresponding to 34 weeks 6 days. HC measures 30.43 cm corresponding to 33 weeks 6 days. AC measures 31.15 cm corresponding to 35 weeks 1 days. FL measures 6.97 cm corresponding to 35 weeks 5 days. EDDI is 14 cm. Impression: Again single viable intrauterine with mean gestational age 34 weeks 6 days. There has been progression in the but the fetus now measures 15 days smaller.
--- NOTE | 2017-10-22 12:59 | XRAY ---
Indication: well-being. Ultrasound biophysical profile study was performed. Comparison: None Conventional OB ultrasound reported separately. heart rate 124 BPM. Four-quadrant EDDI is 14 cm. 2 points given for breathing, movements, tone, and qualitative amniotic fluid volume. Impression: Total biophysical profile score is 8 out of 8.
[2017-10-22 14:01] VITALS: BP 107/64; PULSE 81
== END 2017-10-22 13:55 | disposition home or self-care (01) ==
LOC: OB 10:06
PROVIDERS: ADMIT Family Medicine; ATTEND Family Medicine
DX: Z34.83 Encounter for supervision of other normal pregnancy, third trimester (principal)
CPT/HCPCS: 36415; 76805; 76819; 80053; 84550; 85025; G0378; A9270-GY

== ENCOUNTER 2017-10-27 15:06 | Observation (INO) | payer MEDICAID ==
[2017-10-27] MEDS ORDERED: Lactated Ringers 1,000 ML IV ONE (15:13)
[2017-10-27] MEDS: ROCEPHIN 1 Gm-D5w 50 ml Bag** 1 G/50 ML IVPB IV SCH (15:48)
[2017-10-27] MEDS: TYLENOL 325 MG PO PRN (16:45)
[2017-10-27 16:58] LABS: BASOPHIL % 0.1 % (0.0-0.4); Eosinophil % 1.5 % (0.00-5.0); Granulocytes % 68.6 % (36.0-66.0); Lymphocytes % 23.9 % (24.0-44.0); Mean Platelet Volume 11.7 fl (6-9.5); Monocytes % 5.9 % (0.0-12.0); Platelet Count 127 K/mm3 (150-450); Red Blood Count 3.29 M/mm3 (4.1-5.4); Red Cell Distribution Width 13.8 % (11.5-14.0); White Blood Count 8.9 K/mm3 (4.0-10.5)
[2017-10-27 17:06] LABS: Bilirubin NEGATIVE (NEGATIVE); Blood 250 Ery/ul (0-5); COMPLETE URINE MICROSCOPIC? YES; Collection Type CLEAN CATCH; Glucose NEGATIVE (NEGATIVE); Leukocyte Esterase NEGATIVE (NEGATIVE)
[2017-10-27 17:07] LABS: WBC 0-2 /HPF (0-5)
[2017-10-27 17:08] LABS: Bacteria MODERATE /HPF (NEGATIVE); Epithelial Cells MANY /HPF (FEW)
[2017-10-27 17:20] LABS: Mean Corpuscular Hemoglobin 30.6 pg (26-32)
[2017-10-27 17:24] LABS: ALBUMIN 2.4 g/dL (3.4-5.0); ALKALINE PHOSPHATASE 92 U/L (46-116); ANION GAP 8.1 MEQ/L (5-15); BLOOD UREA NITROGEN 13 mg/dL (9-20); CHLORIDE 105 mEq/L (98-107); Carbon Dioxide 26.9 mEq/L (21-32); Glucose 83 MG/DL (70-110); SGOT/AST 18 U/L (15-37); SGPT/ALT 19 U/L (12-78); SODIUM 136 mEq/L (136-145); Total Protein 5.7 gm/dL (6.4-8.2)
[2017-10-27] MEDS: Norco 10/325 MG Tablet PO PRN ×2 (18:16→22:14)
[2017-10-28] MEDS ORDERED: TYLENOL EXTRA STRENGTH 500 MG ONE (03:07)
[2017-10-28] MEDS: TYLENOL 325 MG PO PRN (03:11)
[2017-10-28 06:35] LABS: BASOPHIL % 0.1 % (0.0-0.4); Eosinophil % 2.2 % (0.00-5.0); Mean Cell Volume 93.4 fl (78-100); Mean Platelet Volume 12.3 fl (6-9.5); Monocytes % 5.7 % (0.0-12.0); Platelet Count 113 K/mm3 (150-450); Red Blood Count 3.51 M/mm3 (4.1-5.4); White Blood Count 9.2 K/mm3 (4.0-10.5)
[2017-10-28 06:44] LABS: Mean Corpuscular Hemoglobin 30.4 pg (26-32)
[2017-10-28] MEDS: Norco 10/325 MG Tablet PO PRN ×2 (09:00→15:41)
[2017-10-28 09:50] VITALS: O2SAT 16
[2017-10-28] MEDS: ROCEPHIN 1 Gm-D5w 50 ml Bag** 1 G/50 ML IVPB IV SCH (12:01)
[2017-10-28 18:28] VITALS: BP 118/56; PULSE 76
--- NOTE | 2017-10-28 21:13 | XRAY ---
Indication: Hepatitis B. 38.5 weeks . Two-dimensional right upper quadrant abdominal sonogram performed. Comparison: None Gallbladder normally distended without gallstones, wall thickening, or pericholecystic fluid. Common bile duct measures 5.3 mm. No intrahepatic biliary distention. Visualized portions of the liver homogeneous. No ascites. Remaining visualized pancreas and right kidney sonographically unremarkable. Right kidney measures 12.2 cm in length. Impression: Negative right upper quadrant sonogram.
[2017-10-30 04:13] LABS: Hepatitis B Core Ab. IgM Non Reactive (Non Reactive)
[2017-10-30 09:39] LABS: Hepatitis B Surface Ab.Quant <3.50 mIU/mL (0.00-8.49)
== END 2017-10-28 17:55 | disposition home or self-care (01) ==
LOC: MED SURG 15:06 → UNDOADMOB 15:06 → UNDODISOB 10-28 17:55
PROVIDERS: ADMIT Family Medicine; ATTEND Family Medicine
DX: O99.113 Other diseases of the blood and blood-forming organs and certain disorders involving the immune mechanism complicating pregnancy, third trimester (principal); O26.893 Other specified pregnancy related conditions, third trimester; Z3A.38 38 weeks gestation of pregnancy
CPT/HCPCS: 36415; 76705; 80053; 80307; 81000; 85025; 86317; 86705; 86803; 87086; G0378; J0696; A9270-GY

== ENCOUNTER 2017-11-05 11:24 | Observation (INO) | payer MEDICAID ==
[2017-11-05 12:23] VITALS: BP 125/77; PULSE 88
== END 2017-11-05 13:37 | disposition home or self-care (01) ==
LOC: OB 11:24
PROVIDERS: ADMIT Family Medicine; ATTEND Family Medicine
DX: Z34.83 Encounter for supervision of other normal pregnancy, third trimester (principal)
CPT/HCPCS: 59025; G0378

== ENCOUNTER 2017-11-07 00:19 | Inpatient (IN) | payer MEDICAID ==
[2017-11-07 01:23] LABS: Hematocrit 33.8 % (35-47); Hemoglobin 11.4 gm/dl (12.0-16.0); Mean Cell Volume 91.8 fl (78-100); Mean Corpuscular Hemoglobin 30.9 pg (26-32); Mean Corpuscular Hgb Concent. 33.7 g/dl (32-36); Mean Platelet Volume 11.8 fl (6-9.5); Platelet Count 156 K/mm3 (150-450); Red Blood Count 3.68 M/mm3 (4.1-5.4); Red Cell Distribution Width 13.9 % (11.5-14.0); White Blood Count 13.4 K/mm3 (4.0-10.5)
[2017-11-07 01:36] LABS: INR 0.95 (0.8-3.0)
[2017-11-07 01:38] LABS: PTT 27.2 SECONDS (25.3-37.0)
[2017-11-07 02:02] LABS: ABO TYPING A; Antibody Screen NEGATIVE (NEGATIVE); RH TYPING POSITIVE
[2017-11-07 02:51] LABS: Appearance CLEAR (CLEAR); Bilirubin NEGATIVE (NEGATIVE); Blood NEGATIVE Ery/ul (0-5); Glucose NEGATIVE (NEGATIVE); Ketones NEGATIVE (NEGATIVE); Leukocyte Esterase NEGATIVE (NEGATIVE); Nitrite NEGATIVE (NEGATIVE); Protein,Urine Dip NEGATIVE (Negative); Specific Gravity 1.015 (1.005-1.025); Urobilinogen NORMAL mg/dL (0-1)
[2017-11-07 02:58] LABS: Amphetamine,Urine NEG. (NEGATIVE); Barbiturate,Urine NEG. (NEGATIVE); Benzodiazepine,Urine NEG. (NEGATIVE); Cocaine,Urine NEG. (NEGATIVE); Methadone,Urine NEG. (NEGATIVE); Opiate,Urine NEG. (NEGATIVE); PCP,Urine NEG. (NEGATIVE); THC,Urine NEG. (NEGATIVE)
[2017-11-07] MEDS ORDERED: Reglan 10 MG/2 ML IV SCH (06:00)
[2017-11-07] MEDS ORDERED: Lactated Ringers 1,000 ML IV SCH (06:00)
[2017-11-07] MEDS ORDERED: Lactated Ringers 1,000 ML IV ONE (06:00)
[2017-11-07] MEDS ORDERED: Pepcid 20 MG VIAL IV SCH (06:00)
[2017-11-07] MEDS ORDERED: KEFZOL 1 GM ONE (06:25)
[2017-11-07] MEDS ORDERED: MORPHINE SULFATE 2 MG INJ IV PRN (08:00)
[2017-11-07] MEDS ORDERED: BENADRYL 50 MG/ML IV PRN (08:00)
[2017-11-07] MEDS ORDERED: Zofran 4 MG/2 ML VIAL IV PRN (08:00)
[2017-11-07] MEDS ORDERED: Nubain 10 MG/ML IV PRN (08:00)
[2017-11-07] MEDS ORDERED: HOLD NARCOTIC ANALGESICS AND SEDATIVES X24 HR MC PRN (08:00)
[2017-11-07] MEDS ORDERED: CLARITIN 10 MG PO PRN (08:00)
[2017-11-07] MEDS ORDERED: DEMEROL 50 MG IV PRN (08:00)
[2017-11-07] MEDS ORDERED: Narcan 0.4 MG/ML IV PRN (08:00)
[2017-11-07] MEDS ORDERED: Dulcolax 10 MG SUPP PR PRN (09:00)
[2017-11-07] MEDS ORDERED: TYLENOL EXTRA STRENGTH 500 MG PO PRN (09:00)
[2017-11-07] MEDS ORDERED: Ambien 10 MG PO PRN (09:00)
[2017-11-07] MEDS ORDERED: Adacel Vial IM ONE (09:00)
[2017-11-07] MEDS ORDERED: Anucort-HC SUPPOSITORY PR PRN (09:00)
[2017-11-07] MEDS ORDERED: CORTISONE 1% CREAM TP PRN (09:00)
[2017-11-07] MEDS ORDERED: LANSINOH 40 GM TOP PRN (09:00)
[2017-11-07] MEDS: Dextrose 5%-Lr IV Solution 1000 ML 1,000 ML IV SCH ×2 (09:22→17:03)
[2017-11-07 10:18] LABS: ALBUMIN 2.9 g/dL (3.4-5.0); BILIRUBIN,TOTAL 0.2 mg/dL (0.2-1.0); Direct Bilirubin 0.09 MG/DL (0.0-0.2); Total Protein 6.2 gm/dL (6.4-8.2)
[2017-11-07] MEDS: PERCOCET TABLET 5/325MG PO PRN ×3 (11:51→20:55)
[2017-11-07] MEDS: FERREX 150 PO SCH (12:00)
[2017-11-07] MEDS: Colace 100 MG PO SCH ×2 (12:00→21:57)
--- NOTE | 2017-11-07 14:11 | OP ---
SURGERY DATE/TIME: 11/07/2017 0658 PREOPERATIVE DIAGNOSES: 1) History of prior section x4. 2) Term intrauterine . 3) Desires permanent sterilization. POSTOPERATIVE DIAGNOSES: 1) History of prior section x4. 2) Term intrauterine . 3) Desires permanent sterilization. PROCEDURES: 1) Repeat low transverse section. 2) Bilateral tubal ligation. SURGEON: Lucas Blackburn M.D. ART PSYCHOTHERAPIST: technician assistant. ESTIMATED BLOOD LOSS: 300 cc. IV FLUIDS: 1300 cc of crystalloid. URINE OUTPUT: 100 cc of clear straw-colored urine. SPECIMEN: Bilateral fallopian tube segments. ANESTHESIA: Spinal by Jagjit Lynn CRNA. DESCRIPTION OF PROCEDURE: Prior to the procedure I discussed risks, benefits and alternative to repeat low transverse section. I also discussed the failure rate of tubal ligation of 1:300 and the permanent nature of the procedure. The patient elected to continue with tubal ligation. She went to the operating room and underwent spinal anesthesia. She was prepped and draped in the usual sterile fashion. After adequate level of anesthesia was assessed, a low transverse skin incision was made by knife at the area of prior scar and carried down to subcutaneous fat to the level of the fascia. The fascia was nicked on both sides of the midline and extended in horizontal fashion using curved Collier scissors. The superior free edge of the fascia was grasped with Apolonia clamps and the underlying rectus muscles were dissected free with curved Collier scissors. The same was repeated inferiorly. Next, the peritoneal cavity was carefully opened and entered and extended in horizontal fashion. The bladder blade was then inserted. Bladder flap was created and reflected over the lower uterine segment. Horizontal uterine incision was made by knife and carried down to the level of the amniotic membranes which were carefully artificially ruptured. Meconium stained fluid was encountered. A viable female from the vertex presentation was delivered. Dr. Yudelka cormier suctioned the oropharynx and nares. The cord was clamped and cut and then Dr. Jha robed and scrubbed to take care of the baby. The placenta was removed. The uterus was exteriorized. The uterine cavity was wiped free with lap sponge. The uterine incision was closed with #1 chromic in a running locked fashion. Good closure and good hemostasis were achieved. The left fallopian tube was identified and carried down to the fimbrial edge. It was grasped with Sachin and cautery was used to make a window in the mesosalpinx. Proximal and distal tube segments were ligated with a chromic tie and interceding tube segment was dissected with Metzenbaum scissors and the free edge of the tube was then cauterized with electrocautery. The same was repeated on the right with no complications. The posterior cul-de-sac was wiped free of blood and clot. The uterus was returned to the peritoneal cavity. Lateral gutters were wiped free of blood and clot. The incision was then inspected and noted to be hemostatic. The fascial layer was closed with 0 Vicryl in running fashion with good closure and good hemostasis. Subcutaneous fat was irrigated with warm sterile saline. Any areas of bleeding were cauterized with electrocautery. Finally the skin layer was closed with 4-0 undyed Vicryl in running subcuticular fashion. Steri-Strips and occlusive dressing were placed over the incision and the patient was transferred to the recovery in excellent condition.
[2017-11-07] MEDS ORDERED: Astramorph-Pf 5 MG/10 ML IJ ONE (15:36)
[2017-11-07] MEDS ORDERED: Zofran 4 MG/2 ML VIAL IV ONE (15:59)
[2017-11-07] MEDS ORDERED: Pitocin 10 UNITS/ML IV ONE (15:59)
[2017-11-07] MEDS ORDERED: PHENYLEPHRINE HCL IV ONE (15:59)
[2017-11-07] MEDS ORDERED: MARCAINE 0.5%-EPI 1:200,000 VL IJ ONE (15:59)
[2017-11-07] MEDS ORDERED: DIPRIVAN 200 MG/20 ML IV ONE (15:59)
[2017-11-07] MEDS ORDERED: TORAdol 30 mg Injection IV ONE (15:59)
[2017-11-07] MEDS ORDERED: Ephedrine Sulfate 50 MG/ML IV ONE (15:59)
[2017-11-07] MEDS: Mylicon 80MG PO PRN (21:57)
[2017-11-07] MEDS: MOTRIN 400 MG PO PRN (23:11)
[2017-11-08] MEDS: PERCOCET TABLET 5/325MG PO PRN ×2 (01:03→05:15)
[2017-11-08 05:28] LABS: BASOPHIL % 0.1 % (0.0-0.4); Basophil (Absolute #) 0.01 (0-0.4); Eosinophil % 1.8 % (0.00-5.0); Eosinophil (Absolute #) 0.16 (0-0.5); Granulocyte Absolute (ANC) 6.65 (1.4-6.9); Granulocytes % 74.1 % (36.0-66.0); Hematocrit 34.8 % (35-47); Hemoglobin 11.2 gm/dl (12.0-16.0); Lymphocyte (Absolute #) 1.64 (1.0-4.6); Lymphocytes % 18.3 % (24.0-44.0); Mean Cell Volume 94.1 fl (78-100); Mean Corpuscular Hgb Concent. 32.2 g/dl (32-36); Mean Platelet Volume 11.5 fl (6-9.5); Monocyte (Absolute #) 0.51 (0.0-1.3); Monocytes % 5.7 % (0.0-12.0); Platelet Count 106 K/mm3 (150-450); Red Cell Distribution Width 14.1 % (11.5-14.0)
[2017-11-08 05:42] LABS: Mean Corpuscular Hemoglobin 30.2 pg (26-32)
[2017-11-08] MEDS ORDERED: Phenergan 25 MG INJ IM PRN (08:00)
[2017-11-08] MEDS ORDERED: DEMEROL 75 MG IM PRN (08:00)
[2017-11-08 08:45] VITALS: O2SAT 99
[2017-11-08] MEDS: NORCO 5/325 MG PO PRN ×2 (09:28→13:33)
[2017-11-08] MEDS: FERREX 150 PO SCH (09:28)
[2017-11-08] MEDS: Colace 100 MG PO SCH ×2 (09:29→21:39)
[2017-11-08] MEDS: Mylicon 80MG PO PRN ×3 (09:51→20:11)
[2017-11-08] MEDS: MOTRIN 400 MG PO PRN ×3 (10:36→22:58)
[2017-11-08] MEDS: Norco 10/325 MG Tablet PO PRN (20:07)
[2017-11-09] MEDS: Norco 10/325 MG Tablet PO PRN ×3 (00:26→11:18)
[2017-11-09] MEDS: MOTRIN 400 MG PO PRN ×2 (05:07→20:10)
[2017-11-09] MEDS: Colace 100 MG PO SCH ×2 (10:01→21:26)
[2017-11-09] MEDS: FERREX 150 PO SCH (10:02)
[2017-11-09] MEDS ORDERED: PERCOCET TABLET 5/325MG PO PRN (11:55)
[2017-11-09] MEDS: Mylicon 80MG PO PRN ×2 (16:23→21:50)
[2017-11-09] MEDS: OXYCODONE-ACETAMINOPHEN 10-325 PO PRN (20:44)
[2017-11-10] MEDS: OXYCODONE-ACETAMINOPHEN 10-325 PO PRN ×2 (00:56→05:03)
[2017-11-10] MEDS: Mylicon 80MG PO PRN ×2 (02:10→14:30)
[2017-11-10] MEDS: MOTRIN 400 MG PO PRN ×2 (02:10→09:16)
[2017-11-10] MEDS: FERREX 150 PO SCH (09:16)
[2017-11-10] MEDS: Colace 100 MG PO SCH (09:16)
--- NOTE | 2017-11-10 10:00 | PCM.DS ---
Discharge Summary Date of Admission: 11/07/17 00:19 Admitting Physician: HEBERT ACEVEDO Consults: Consults on Case 11/07/17 00:34 Notify Physician OF ADMISSION 11/07/17 00:36 Notify Anesthesia Provider ROUTINE Primary Care Provider: HEBERT ACEVEDO Allergies Allergies egg Allergy (Verified 10/03/17 16:25) Sulfa (Sulfonamide Antibiotics) Allergy (Verified 10/03/17 16:25) sulfamethoxazole [From Bactrim] Allergy (Verified 10/03/17 16:25) trimethoprim [From Bactrim] Allergy (Verified 10/03/17 16:25) Hospital Summary - Hospital Course Hospital Course: Pt came in 32 yo for her 4th repeat c/s at 39+ weeks. She had quite a bit of adhesion noted during the surgery. BTL was performed. She did well and hemoglobin the next morning was 11.2. She had quite a bit of pain for the first two days but today on POD #3 she is feeling better. She is up out of bed without complaint. Her wound on the R was noted to have some small separation yesterday; today there is some exudate so she will be discharged home on augmentin. She is bottle feeding and baby is feeding well. - Vitals & Intake/Output Vital Signs: Vital Signs Temperature 98.3 F 11/10/17 02:00 Pulse Rate 101 H 11/09/17 19:57 Respiratory Rate 18 11/10/17 02:00 Blood Pressure 124/68 11/09/17 19:57 O2 Sat by Pulse Oximetry 99 11/08/17 07:00 Intake & Output: Intake & Output 11/07/17 11/08/17 11/09/17 11/10/17 11:59 11:59 11:59 11:59 Intake Total 7170 1450 1670 Output Total 4325 Balance 2845 1450 1670 Weight 92.533 kg - Lab Result Diagrams: 11/08/17 05:24 Micro Results-Entire Visit: Microbiology 11/07/17 07:14 Urine Culture - Final Catherized NO GROWTH - Procedures and Test Procedures and Tests throughout Hospitalization: Therapy Orders & Screens 11/07/17 02:22 Smoking Cessation Education ONCE Comment: Diagnosis: Repeat Section Smoking Status: Light tobacco smoker How long have you smoked: 8 yrs Have you smoked in the past 12 months: Yes Approximately how many cigarettes per day: 5 Do you dip or chew tobacco: No Discharge Exam General Appearance: no apparent distress, alert Neurologic Exam: oriented x 3, cooperative Skin Exam: warm, dry Respiratory Exam: normal breath sounds, lungs clear, No crackles/rales, No rhonchi, No wheezing Cardiovascular Exam: regular rate/rhythm, normal heart sounds, No murmur Gastrointestinal/Abdomen Exam: soft, other (fundus firm under umbilicus. Wound with yellow exudate R lateral approx 3cm section with minimal wound separation. no erythema.) Final Diagnosis/Problem List - Final Discharge Diagnosis/Problem (1) delivery delivered Current Visit: Yes Status: Acute Assessment & Plan: POD #3, home on norco. Ok to stop her iron. On stool softeners. (2) scant care Current Visit: Yes Status: Acute Assessment & Plan: THC positive at one appointment. Unable to get meconium on the baby. (3) Postoperative wound dehiscence Current Visit: Yes Status: Acute Assessment & Plan: With some possible infection, which I think is superficial. She will have a wound check in 2d in LR. Rashel marlon augmentin. - Discharge Disposition: Home, Self-Care Condition: Good Prescriptions: New Amoxicillin/Potassium Clav [Augmentin 875-125 Tablet] 1 each PO BID #14 tablet Docusate Sodium 100 mg [Colace 100 MG] 100 mg PO BID #14 capsule Hydrocodone Bit/Acetaminophen [[place] 10-325 Tablet] 1 each PO QID PRN #28 tablet MDD 4 PRN Reason: Severe Pain Continue Vits W-Ca,Fe,FA(<1Mg) [] 1 each PO DAILY Discontinued Cephalexin Mh 500 mg [Keflex 500 mg] 500 mg PO BID Follow up with: HEBERT ACEVEDO MD [Primary Care Provider] - 1 Week
[2017-11-10 16:14] VITALS: BP 130/82; PULSE 94
[2017-11-14 14:26] LABS: Hbvdna IU/mL 28 IU/mL (0-0)
[2017-11-15 05:19] LABS: HBV DNA Quant. by PCR Interp Detected (Not Detected)
== END 2017-11-10 16:00 | disposition home or self-care (01) | DRG 766 ==
LOC: OB 00:19
PROVIDERS: ADMIT Family Medicine; ATTEND Family Medicine
PROC: 10D00Z1 Extraction of Products of Conception, Low, Open Approach (ICD-10-PCS; principal; 2017-11-07)
PROC: 0UL70ZZ Occlusion of Bilateral Fallopian Tubes, Open Approach (ICD-10-PCS; 2017-11-07)
DX: O34.219 Maternal care for unspecified type scar from previous cesarean delivery (principal); Z3A.39 39 weeks gestation of pregnancy; Z37.0 Single live birth; Z30.2 Encounter for sterilization
CPT/HCPCS: 01961; 36415; 59025; 62322; 64488; 76937; 80076; 80307; 81002; 85025; 85027; 85610; 85730; 86850; 86900; 86901; 87086; 87517; 88302; 90715; 94799; G0378; J0690; J1885; J2274; J2370; J2405; J2590; J2704; L0625; A9270-GY

== ENCOUNTER 2017-11-20 12:58 | Observation (INO) | payer MEDICAID ==
[2017-11-20] MEDS ORDERED: Sodium Chloride 0.9% 1000 ML 1,000 ML IV STA (13:37)
[2017-11-20] MEDS ORDERED: Phenergan 25 MG INJ IV ONE (13:37)
[2017-11-20] MEDS ORDERED: Hydromorphone 1 mg/ml Ampule IV ONE (13:37)
[2017-11-20] MEDS ORDERED: ROCEPHIN 1 Gm-D5w 50 ml Bag** 1 G/50 ML IVPB IV STA (13:40)
--- NOTE | 2017-11-20 13:46 | ERPHSYRPT ---
- History of Present Illness Time Seen by Provider: 11/20/17 13:28 Historian: patient Exam Limitations: no limitations Patient Subjective Stated Complaint: PT STATES SHE IS 2 WEEKS OUT FROM A C- SECTION AND IS HAVING ABDOMINAL PAIN FROM INCISION. Triage Nursing Assessment: PT PINK, WARM, DRY. INCISION RED, YELLOW DRAINAGE NOTED, FOUL SMELL. PT AFEBRILE AT THIS TIME. Physician History: PT HAD A (# 5) ON 11/07/17 AT [facility] BY DR ACEVEDO AND DR BARFIELD. FOUR DAYS AGO PT'S INCISION ON THE RIGHT SIDE STARTED WITH PURULENT YELLOW-GREEN DRAINAGE. YESTERDAY PT STARTED WITH RLQ ABDOMINAL PAIN AND FEVER OF 101 DEGREES. PT ALSO HAS HAD BROWN DIARRHEA WITHOUT BLOOD TODAY X6. PT DENIES CHEST PAIN, SHORTNESS OF AIR, VOMITING. Allergies/Adverse Reactions: egg Allergy (Verified 11/20/17 13:18) Sulfa (Sulfonamide Antibiotics) Allergy (Verified 11/20/17 13:18) sulfamethoxazole [From Bactrim] Allergy (Verified 11/20/17 13:18) trimethoprim [From Bactrim] Allergy (Verified 11/20/17 13:18) Home Medications: Vits W-Ca,Fe,FA(<1Mg) [] 1 each PO DAILY 09/21/17 [History] Sertraline HCl [Zoloft] 25 mg PO DAILY 11/20/17 [History] Hx Tetanus, Diphtheria Vaccination/Date Given: Yes (UP TO DATE) Hx Influenza Vaccination/Date Given: No Hx Pneumococcal Vaccination/Date Given: No Immunizations Up to Date: Yes - Review of Systems Constitutional: Fever Respiratory: No Dyspnea Cardiac: No Chest Pain Abdominal/Gastrointestinal: Abdominal Pain, Diarrhea, No Vomiting Skin: Other (LOWER ABDOMINAL INCISIONAL DRAINAGE) All Other Systems: Reviewed and Negative - Past Medical History Pertinent Past Medical History: Yes Neurological History: No Pertinent History ENT History: No Pertinent History Cardiac History: No Pertinent History Respiratory History: No Pertinent History Endocrine Medical History: No Pertinent History Musculoskeletal History: No Pertinent History GI Medical History: No Pertinent History History: Other Psycho-Social History: Anxiety, Depression Female Reproductive Disorders: No Pertinent History Other Medical History: 30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 Metastatic melanoma - Past Surgical History Past Surgical History: Yes Neuro Surgical History: No Pertinent History Cardiac: No Pertinent History Respiratory: No Pertinent History Gastrointestinal: No Pertinent History Musculoskeletal: No Pertinent History Female Surgical History: Section, Tubal Ligation Other Surgical History: Back Melanoma resection and lymph node resection. c section x 4 - Social History Smoking Status: Current every day smoker How long have you smoked: 6 Exposure to second hand smoke: Yes Drug Use: none Patient Lives Alone: No - Female History Hx Last Menstrual Period: 2 WEEKS POST Hx Now: No - Nursing Vital Signs Nursing Vital Signs: Initial Vital Signs Temperature 98.6 F 11/20/17 13:12 Pulse Rate 59 L 11/20/17 13:12 Respiratory Rate 20 11/20/17 13:12 Blood Pressure 118/65 11/20/17 13:12 O2 Sat by Pulse Oximetry 99 11/20/17 13:12 Pain Scale Pain Intensity 1 - Physical Exam General Appearance: alert Eye Exam: PERRL/EOMI Ears, Nose, Throat Exam: TMs normal, pharynx normal, moist mucous membranes Neck Exam: normal inspection Respiratory Exam: lungs clear Cardiovascular Exam: normal heart sounds Gastrointestinal/Abdomen Exam: normal bowel sounds, tenderness (MODERATE LOWER ABDOMINAL TENDERNESS RIGHT > LEFT; YELLOW DRAINAGE FROM THE RIGHT SIDE OF THE LOWER ABDOMINAL INCISION WITH SURROUNDING ERYTHEMA.), guarding (VOLUNTARY GUARDING OF THE ABDOMINAL RLQ) Back Exam: normal range of motion Extremity Exam: normal inspection, No pedal edema Neurologic Exam: alert, cooperative SpO2 Interpretation: normal SpO2: 99 Oxygen Delivery: Room Air - Course Nursing assessment & vital signs reviewed: Yes - CT Exams Abdomen/Pelvis CT Interpretation: Discussed w/radiologist (LOWER ABDOMINAL WALL POSTSURGICAL CHANGES WITHOUT SUSPICIOUS FLUID/AIR COLLECTION. ALSO TINY PELVIC FREE FLUID. INCIDENTAL FINDINGS RELATED TO RECENT GRAVID STATUS INCLUDING SPLENOMEGALY, RIGHT-SIDED HYDRONEPHROSIS/HYDROURETER, ENLARGED UTERUS. REMAINING CT ABD/PEL WITHOUT CONTRAST EXAM IS NEGATIVE.) Ordered Tests: Active Orders 24 hr Category Date Time Status Clean Catch Urine Specimen STAT Care 11/20/17 13:37 Active IV Insertion STAT Care 11/20/17 13:37 Active ABDOMEN AND PELVIS W/0 CONTRAS [CT] Stat Exams 11/20/17 13:38 Completed AMYLASE Stat Lab 11/20/17 13:30 Completed BLOOD CULTURE Stat Lab 11/20/17 13:30 Received CBC W DIFF Stat Lab 11/20/17 13:30 Completed CMP Stat Lab 11/20/17 13:30 Completed CULTURE,URINE Stat Lab 11/20/17 14:00 Received Erythrocyte Sedimentation Rate Stat Lab 11/20/17 13:30 Completed LIPASE Stat Lab 11/20/17 13:30 Completed Lactic Acid Stat Lab 11/20/17 14:07 Completed MAGNESIUM Stat Lab 11/20/17 13:30 Completed UA W/ MICROSCOPIC Stat Lab 11/20/17 14:00 Completed Medication Summary Generic Name Dose Route Start Last Admin Trade Name Freq PRN Reason Stop Dose Admin Clindamycin HCl/Dextrose 600 mg in 50 mls @ 100 mls/hr 11/20/17 15:53 Clindamycin-D5w 600 Mg/50 Ml IV 11/20/17 16:22 STAT STA Discontinued Medications Generic Name Dose Route Start Last Admin Trade Name Freq PRN Reason Stop Dose Admin Hydromorphone HCl 1 mg 11/20/17 13:37 11/20/17 13:54 Hydromorphone 1 Mg/Ml Ampule IV 11/20/17 13:38 1 mg STAT ONE Administration Hydromorphone HCl Confirm 11/20/17 13:49 Hydromorphone 1 Mg/Ml Ampule Administered 11/20/17 13:50 Dose 1 mg .ROUTE .STK-MED ONE Ceftriaxone Sodium/Dextrose 1 g in 50 mls @ 100 mls/hr 11/20/17 13:40 13:59 Rocephin 1 Gm-D5w 50 Ml Bag IV 11/20/17 14:09 100 mls/hr STAT STA Administration Sodium Chloride 1,000 mls @ 999 mls/hr 11/20/17 13:37 11/20/17 13:51 Sodium Chloride 0.9% 1000 Ml IV 11/20/17 14:37 999 mls/hr .Q1H1M STA Administration Sodium Chloride Confirm 11/20/17 13:49 Sodium Chloride 0.9% 1000 Ml Administered 11/20/17 13:50 Dose 1,000 mls @ ud .ROUTE .STK-MED ONE Ceftriaxone Sodium/Dextrose Confirm 11/20/17 13:49 Rocephin 1 Gm-D5w 50 Ml Bag Administered 11/20/17 13:50 Dose 1 g in 50 mls @ ud IV .STK-MED ONE Promethazine HCl 12.5 mg 11/20/17 13:37 11/20/17 13:52 Phenergan 25 Mg Inj IV 11/20/17 13:38 12.5 mg STAT ONE Administration Promethazine HCl Confirm 11/20/17 13:49 Phenergan 25 Mg Inj Administered 11/20/17 13:50 Dose 25 mg .ROUTE .[facility]-MED ONE Lab/Rad Data: Laboratory Result Diagrams 11/20/17 13:30 11/20/17 13:30 Laboratory Results 11/20/17 11/20/17 11/20/17 Range/Units 14:07 14:00 13:30 WBC (4.0-10.5) K/mm3 RBC (4.1-5.4) M/mm3 Hgb (12.0-16.0) gm/dl Hct (35-47) % MCV (78-100) fl MCH (26-32) pg MCHC (32-36) g/dl RDW (11.5-14.0) % Plt Count (150-450) K/mm3 MPV (6-9.5) fl Gran % (36.0-66.0) % Lymphocytes % (24.0-44.0) % Monocytes % (0.0-12.0) % Eosinophils % (0.00-5.0) % Basophils % (0.0-0.4) % Basophils # (0-0.4) ESR (0-20) mm/hr Sodium 139 (136-145) mEq/L Potassium 4.1 (3.5-5.1) mEq/L Chloride 106 (98-107) mEq/L Carbon Dioxide 24.5 (21-32) mEq/L Anion Gap 12.9 (5-15) MEQ/L BUN 14 (9-20) mg/dL Creatinine 0.90 (0.55-1.30) mg/dl Estimated GFR > 60 ML/MIN Glucose 95 (70-110) MG/DL Lactic Acid 1.2 (0.4-2.0) Calcium 8.5 (8.5-10.1) mg/dL Magnesium 1.9 (1.8-2.4) mg/dL Total Bilirubin 0.20 (0.2-1.0) mg/dL AST 18 (15-37) U/L ALT 20 (12-78) U/L Alkaline Phosphatase 95 (46-116) U/L Serum Total Protein 7.0 (6.4-8.2) gm/dL Albumin 3.3 L (3.4-5.0) g/dL Amylase 24 L (25-115) U/L Lipase 121 (73-393) U/L Ur Collection Type VOID Urine Color YELLOW (YELLOW) Urine Appearance CLEAR (CLEAR) Urine pH 7.0 (5-6) Ur Specific [place] 1.010 (1.005-1.025) Urine Protein NEGATIVE (Negative) Urine Ketones NEGATIVE (NEGATIVE) Urine Blood 50 (0-5) Sd/ul Urine Nitrite NEGATIVE (NEGATIVE) Urine Bilirubin NEGATIVE (NEGATIVE) Urine Urobilinogen NORMAL (0-1) mg/dL Ur Leukocyte Esterase TRACE (NEGATIVE) Urine Microscopic WBC 2-5 (0-5) /HPF Ur Epithelial Cells FEW (FEW) /HPF Urine Bacteria FEW (NEGATIVE) /HPF Urine Culture Reflexed YES (NO) Urine Glucose NEGATIVE (NEGATIVE) mg/dL Specimen Received 11/20/17 1400 11/20/17 Range/Units 13:30 WBC 6.6 (4.0-10.5) K/mm3 RBC 4.21 (4.1-5.4) M/mm3 Hgb 12.8 (12.0-16.0) gm/dl Hct 38.7 (35-47) % MCV 91.9 (78-100) fl MCH 30.4 (26-32) pg MCHC 33.1 (32-36) g/dl RDW 12.6 (11.5-14.0) % Plt Count 158 (150-450) K/mm3 MPV 11.0 H (6-9.5) fl Gran % 48.6 (36.0-66.0) % Lymphocytes % 41.8 (24.0-44.0) % Monocytes % 4.1 (0.0-12.0) % Eosinophils % 5.0 (0.00-5.0) % Basophils % 0.5 (0.0-0.4) % Basophils # 0.03 (0-0.4) ESR 8 (0-20) mm/hr Sodium (136-145) mEq/L Potassium (3.5-5.1) mEq/L Chloride (98-107) mEq/L Carbon Dioxide (21-32) mEq/L Anion Gap (5-15) MEQ/L BUN (9-20) mg/dL Creatinine (0.55-1.30) mg/dl Estimated GFR ML/MIN Glucose (70-110) MG/DL Lactic Acid (0.4-2.0) Calcium (8.5-10.1) mg/dL Magnesium (1.8-2.4) mg/dL Total Bilirubin (0.2-1.0) mg/dL AST (15-37) U/L ALT (12-78) U/L Alkaline Phosphatase (46-116) U/L Serum Total Protein (6.4-8.2) gm/dL Albumin (3.4-5.0) g/dL Amylase (25-115) U/L Lipase (73-393) U/L Ur Collection Type Urine Color (YELLOW) Urine Appearance (CLEAR) Urine pH (5-6) Ur Specific [place] (1.005-1.025) Urine Protein (Negative) Urine Ketones (NEGATIVE) Urine Blood (0-5) Sd/ul Urine Nitrite (NEGATIVE) Urine Bilirubin (NEGATIVE) Urine Urobilinogen (0-1) mg/dL Ur Leukocyte Esterase (NEGATIVE) Urine Microscopic WBC (0-5) /HPF Ur Epithelial Cells (FEW) /HPF Urine Bacteria (NEGATIVE) /HPF Urine Culture Reflexed (NO) Urine Glucose (NEGATIVE) mg/dL Specimen Received - Progress Discussed with : Aleexy (OBS - [id number]) - Departure Time of Disposition: 15:55 Departure Disposition: Observation Clinical Impression: ABDOMINAL CELLULITIS, S/P SECTION DAY 13, ANXIETY, DEPRESSION Condition: Stable Critical Care Time: No Referrals: HEBERT ACEVEDO MD [Primary Care Provider] -
[2017-11-20] MEDS ORDERED: Phenergan 25 MG INJ ONE (13:49)
[2017-11-20] MEDS ORDERED: ROCEPHIN 1 Gm-D5w 50 ml Bag** 1 G/50 ML IVPB IV ONE (13:49)
[2017-11-20] MEDS ORDERED: Hydromorphone 1 mg/ml Ampule ONE (13:49)
[2017-11-20] MEDS ORDERED: Sodium Chloride 0.9% 1000 ML 1,000 ML ONE (13:49)
[2017-11-20 14:13] LABS: Appearance CLEAR (CLEAR); Bilirubin NEGATIVE (NEGATIVE); Blood 50 Ery/ul (0-5); Glucose NEGATIVE (NEGATIVE); Ketones NEGATIVE (NEGATIVE); Leukocyte Esterase TRACE (NEGATIVE); Nitrite NEGATIVE (NEGATIVE); Protein,Urine Dip NEGATIVE (Negative); Urobilinogen NORMAL mg/dL (0-1)
[2017-11-20 14:14] LABS: BASOPHIL % 0.5 % (0.0-0.4); Basophil (Absolute #) 0.03 (0-0.4); Eosinophil (Absolute #) 0.33 (0-0.5); Granulocyte Absolute (ANC) 3.21 (1.4-6.9); Granulocytes % 48.6 % (36.0-66.0); Hematocrit 38.7 % (35-47); Hemoglobin 12.8 gm/dl (12.0-16.0); Lymphocyte (Absolute #) 2.76 (1.0-4.6); Lymphocytes % 41.8 % (24.0-44.0); Mean Cell Volume 91.9 fl (78-100); Mean Corpuscular Hemoglobin 30.4 pg (26-32); Mean Corpuscular Hgb Concent. 33.1 g/dl (32-36); Monocyte (Absolute #) 0.27 (0.0-1.3); Monocytes % 4.1 % (0.0-12.0); Platelet Count 158 K/mm3 (150-450); Red Blood Count 4.21 M/mm3 (4.1-5.4); Red Cell Distribution Width 12.6 % (11.5-14.0); White Blood Count 6.6 K/mm3 (4.0-10.5)
[2017-11-20 14:21] LABS: Bacteria FEW /HPF (NEGATIVE); Epithelial Cells FEW /HPF (FEW)
[2017-11-20 14:41] LABS: Erythrocyte Sedimentation Rate 8 mm/hr (0-20)
[2017-11-20 14:44] LABS: ALBUMIN 3.3 g/dL (3.4-5.0); ALKALINE PHOSPHATASE 95 U/L (46-116); AMYLASE 24 U/L (25-115); ANION GAP 12.9 MEQ/L (5-15); BLOOD UREA NITROGEN 14 mg/dL (9-20); CHLORIDE 106 mEq/L (98-107); Calcium 8.5 mg/dL (8.5-10.1); Carbon Dioxide 24.5 mEq/L (21-32); EST GLOMERULAR FILTRATION RATE > 60 ML/MIN; Glucose 95 MG/DL (70-110); LIPASE 121 U/L (73-393); MAGNESIUM 1.9 mg/dL (1.8-2.4); Potassium 4.1 mEq/L (3.5-5.1); SGOT/AST 18 U/L (15-37); SGPT/ALT 20 U/L (12-78); SODIUM 139 mEq/L (136-145)
--- NOTE | 2017-11-20 14:46 | XRAY ---
Indication: Incisional pain following section November 07, 2017. Multiple contiguous axial images obtained through the abdomen and pelvis without contrast as ordered. Comparison: None Lung bases demonstrates left base calcified granuloma. Lung bases otherwise clear. Heart is not enlarged. Uterus is enlarged and 15.7 cm splenomegaly consistent with recent gravid status. There is a tampon in situ. Lower anterior abdominal wall demonstrates postsurgical changes related to recent without suspicious fluid or air collection. Tiny pelvic free fluid also presumed postsurgical. No walled off fluid collection or free air. Right kidney is moderately hydronephrotic along with ureter distention up to 10 mm presumed from recent gravid status. Noncontrasted stomach and bowel loops appear nonobstructed. Normal appendix. Remaining liver, gallbladder, pancreas, adrenal glands, left kidney, left ureter, urinary bladder, and aorta appear unremarkable for noncontrast exam. Osseous structures intact. Impression: 1. Lower abdominal wall postsurgical changes without suspicious fluid/air collection. Also tiny pelvic free fluid. 2. Incidental findings related to recent gravid status including splenomegaly, right-sided hydronephrosis/hydroureter, enlarged uterus. 3. Remaining CT abdomen/pelvis without contrast exam is negative. CT DI 20.35
[2017-11-20] MEDS ORDERED: CLINDAMYCIN-D5W 600 MG/50 ML*** 600 MG/50 ML BAG IV STA (15:53)
[2017-11-20] MEDS ORDERED: CLINDAMYCIN-D5W 600 MG/50 ML*** 600 MG/50 ML BAG IV ONE (16:02)
[2017-11-20] MEDS ORDERED: Phenergan 25 MG INJ IV PRN (17:12)
[2017-11-20] MEDS: Sodium Chloride 0.9% 1000 ML 1,000 ML IV SCH (18:06)
[2017-11-20] MEDS: DILAUDID 2 MG INJECTION IV PRN (18:07)
[2017-11-20] MEDS: PROTONIX 40 MG IV IV SCH (18:08)
[2017-11-20] MEDS: ZOLOFT 50 MG TABLET PO SCH (18:08)
[2017-11-20] MEDS: THERAGRAN MULTIVITAMIN PO SCH (18:08)
[2017-11-20] MEDS: CLINDAMYCIN-D5W 600 MG/50 ML*** 600 MG/50 ML BAG IV SCH (21:01)
[2017-11-21] MEDS: DILAUDID 2 MG INJECTION IV PRN ×4 (03:47→16:51)
[2017-11-21] MEDS: Sodium Chloride 0.9% 1000 ML 1,000 ML IV SCH ×2 (04:11→16:54)
[2017-11-21] MEDS: CLINDAMYCIN-D5W 600 MG/50 ML*** 600 MG/50 ML BAG IV SCH ×3 (05:02→16:53)
[2017-11-21 05:34] LABS: BASOPHIL % 0.4 % (0.0-0.4); Basophil (Absolute #) 0.03 (0-0.4); Eosinophil % 5.2 % (0.00-5.0); Granulocyte Absolute (ANC) 3.25 (1.4-6.9); Granulocytes % 42.4 % (36.0-66.0); Hematocrit 38.6 % (35-47); Hemoglobin 12.5 gm/dl (12.0-16.0); Lymphocyte (Absolute #) 3.63 (1.0-4.6); Lymphocytes % 47.3 % (24.0-44.0); Mean Corpuscular Hemoglobin 30.1 pg (26-32); Mean Corpuscular Hgb Concent. 32.4 g/dl (32-36); Monocyte (Absolute #) 0.36 (0.0-1.3); Monocytes % 4.7 % (0.0-12.0); Platelet Count 150 K/mm3 (150-450); Red Blood Count 4.15 M/mm3 (4.1-5.4); Red Cell Distribution Width 12.8 % (11.5-14.0); White Blood Count 7.7 K/mm3 (4.0-10.5)
[2017-11-21 06:56] LABS: ALBUMIN 2.7 g/dL (3.4-5.0); ALKALINE PHOSPHATASE 83 U/L (46-116); ANION GAP 13.2 MEQ/L (5-15); BLOOD UREA NITROGEN 16 mg/dL (9-20); CHLORIDE 108 mEq/L (98-107); Calcium 7.8 mg/dL (8.5-10.1); Carbon Dioxide 24.6 mEq/L (21-32); Creatinine 1 1.05 mg/dl (0.55-1.30); EST GLOMERULAR FILTRATION RATE > 60 ML/MIN; Glucose 116 MG/DL (70-110); Potassium 4.2 mEq/L (3.5-5.1); SGOT/AST 18 U/L (15-37); SGPT/ALT 19 U/L (12-78); SODIUM 142 mEq/L (136-145); Total Protein 5.8 gm/dL (6.4-8.2)
[2017-11-21 07:08] LABS: BILIRUBIN,TOTAL < 0.10 mg/dL (0.2-1.0)
[2017-11-21] MEDS: PROTONIX 40 MG IV IV SCH (07:44)
[2017-11-21] MEDS: THERAGRAN MULTIVITAMIN PO SCH (07:44)
[2017-11-21] MEDS: ZOLOFT 50 MG TABLET PO SCH (07:44)
--- NOTE | 2017-11-21 08:54 | PCM.SSS ---
History of Present Illness - Chief Complaint Chief Complaint: celllulitis History of Present Illness: is a 32 year old female pt of mine from [facility] who is 14d out from repeat c/s and was admitted for cellulitis at the wound site. She was a at 39+ weeks when she delivered. Notably, she had extensive adhesions from prior c/s x 3 and quite a bit of pain after delivery. She was sent home on norco but as she is a medicaid pt and she had norco in the past 45d for her pyelonephritis, she was only able to get [address] Acevedo sent in another rx but it also was unable to be filled. Two days ago she noted yellow exudate from the R lateral end of the incision and had fever to 102. Yesterday she came to ER and was admitted on IV clindamycin. She notes her appetite is better this morning. She is afebrile since admission. She would really like to go home since her new baby is at home. She does have several people at home to help her. She also c/o anxiety and depression, the anxiety is longstanding and the depression she thinks is situational. Denies suicidal ideation. We started her on zoloft after delivery as she was ; no longer . - Review of Systems Constitutional: Fever Respiratory: No Cough Abdominal/Gastrointestinal: Appetite Changes Skin: Cellulitis Psychological: Anxiety, Depression, No Suicidal Ideations Medications & Allergies Home Medications: Home Medication List Vits W-Ca,Fe,FA(<1Mg) [] 1 each PO DAILY 09/21/17 [History Confirmed 11/20/17] Clindamycin HCl 300 mg PO QID #40 capsule 11/21/17 [Rx] Oxycodone HCl/Acetaminophen [Percocet 5-325 mg Tablet] 1 each PO QID PRN #28 tablet MDD 4 11/21/17 [Rx] Paroxetine HCl [Paxil] 20 mg PO DAILY #4 tablet 11/21/17 [Rx] Paroxetine HCl [Paxil] 40 mg PO DAILY #30 tablet 11/21/17 [Rx] Allergies/Adverse Reactions: Allergies Allergy/AdvReac Type Severity Reaction Status Date / Time egg Allergy Verified 11/20/17 13:18 Sulfa (Sulfonamide Allergy Verified 11/20/17 13:18 Antibiotics) sulfamethoxazole Allergy Verified 11/20/17 13:18 [From Bactrim] trimethoprim [From Bactrim] Allergy Verified 11/20/17 13:18 - Past Medical History Past Medical History: Yes Neurological History: No Pertinent History ENT History: No Pertinent History Cardiac History: No Pertinent History Respiratory History: No Pertinent History Endocrine Medical History: No Pertinent History Musculoskelatal History: No Pertinent History GI Medical History: No Pertinent History History: Other Pyscho-Social History: Anxiety, Depression Reproductive Disorders: No Pertinent History Comment: 30 Abruptio. Metastatic melanoma - Female History Hx Last Menstrual Period: 2 WEEKS POST Are you now?: No - Past Surgical History Past Surgical History: Yes Neuro Surgical History: No Pertinent History Cardiac History: No Pertinent History Respiratory Surgery: No Pertinent History GI Surgical History: No Pertinent History Musculskeletal Surgical Hx: No Pertinent History Female Surgical History: Section, Tubal Ligation Other Surgical History: Back Melanoma resection and lymph node resection. c section x 4 - Social History Smoking Status: Current every day smoker How long have you smoked: 6 Exposure to second hand smoke: Yes Alcohol: None Drug Use: none - Physical Exam Vital Signs: Vital Signs - 24 hr Temp Pulse Resp BP Pulse Ox 11/21/17 07:48 97.7 F 59 L 16 111/73 98 11/21/17 04:00 97.8 F 61 17 111/62 98 11/21/17 00:00 97.9 F 64 18 109/61 98 11/20/17 20:00 98.0 F 75 19 105/56 97 11/20/17 17:37 97.8 F 55 L 20 102/55 98 11/20/17 16:00 50 L 18 144/94 11/20/17 15:55 99 11/20/17 15:12 50 L 16 123/77 99 11/20/17 14:44 54 L 18 138/87 100 11/20/17 13:50 98.6 F 65 18 139/71 99 11/20/17 13:12 98.6 F 59 L 20 118/65 99 General Appearance: no apparent distress, alert Neurologic Exam: oriented x 3, cooperative Eye Exam: eyes nml inspection Ears, Nose, Throat Exam: moist mucous membranes Respiratory Exam: normal breath sounds, crackles/rales (RLL), No rhonchi, No wheezing Cardiovascular Exam: regular rate/rhythm, normal heart sounds, No murmur Gastrointestinal/Abdomen Exam: soft, tenderness (at cellulitis site), other (R lateral wound with fairly remote dehiscense; some sign of exudate. there is a rectangular area of erythema surrounding the area consistent with bandage. Induration approx 3x3cm around the lateral edge of wound. ttp. mild erythema.), No distention Results - Labs Lab/Micro Results: Lab Results-Last 24 Hours 11/21/17 11/21/17 Range/Units 05:25 05:25 WBC 7.7 (4.0-10.5) K/mm3 RBC 4.15 (4.1-5.4) M/mm3 Hgb 12.5 (12.0-16.0) gm/dl Hct 38.6 (35-47) % MCV 93.0 (78-100) fl MCH 30.1 (26-32) pg MCHC 32.4 (32-36) g/dl RDW 12.8 (11.5-14.0) % Plt Count 150 (150-450) K/mm3 MPV 11.0 H (6-9.5) fl Gran % 42.4 (36.0-66.0) % Lymphocytes % 47.3 H (24.0-44.0) % Monocytes % 4.7 (0.0-12.0) % Eosinophils % 5.2 H (0.00-5.0) % Basophils % 0.4 (0.0-0.4) % Basophils # 0.03 (0-0.4) Sodium 142 (136-145) mEq/L Potassium 4.2 (3.5-5.1) mEq/L Chloride 108 H (98-107) mEq/L Carbon Dioxide 24.6 (21-32) mEq/L Anion Gap 13.2 (5-15) MEQ/L BUN 16 (9-20) mg/dL Creatinine 1.05 (0.55-1.30) mg/dl Estimated GFR > 60 ML/MIN Glucose 116 H (70-110) MG/DL Calcium 7.8 L (8.5-10.1) mg/dL Total Bilirubin < 0.10 L (0.2-1.0) mg/dL AST 18 (15-37) U/L ALT 19 (12-78) U/L Alkaline Phosphatase 83 (46-116) U/L Serum Total Protein 5.8 L (6.4-8.2) gm/dL Albumin 2.7 L (3.4-5.0) g/dL Assessment/Plan (1) Cellulitis Current Visit: Yes Status: Acute Qualifiers: Site of cellulitis of trunk: abdominal wall Assessment & Plan: Doing well on IV clindamycin; will send her home on po. Advised call if severe diarrhea. RTC with me in 1 wk. Code(s): L03.90 - CELLULITIS, UNSPECIFIED (2) Anxiety Current Visit: Yes Status: Acute Assessment & Plan: change zoloft to paxil at home. Code(s): F41.9 - ANXIETY DISORDER, UNSPECIFIED (3) delivery delivered Current Visit: No Status: Acute Assessment & Plan: She missed her 1 week postoperative visit. Code(s): O82 - ENCOUNTER FOR DELIVERY WITHOUT INDICATION Hospital Summary - Hospital Course Hospital Course: Pt admitted for cellulitis in c/s wound on IV clindamycin. Afebrile overnight and feeling much better; will d/c home on po clindamycin. She is anxious to be with her baby. She is also anxious with some depression and no longer ; will send her home on paxil instead of zoloft. F/u in 1 week. Advised any fever, feeling worse, increased exudate she is to return. - Vitals & Intake/Output Vital Signs: Vital Signs Temperature 97.7 F 11/21/17 07:48 Pulse Rate 59 L 11/21/17 07:48 Respiratory Rate 16 11/21/17 07:48 Blood Pressure 111/73 11/21/17 07:48 O2 Sat by Pulse Oximetry 98 11/21/17 07:48 Intake & Output: Intake & Output 11/18/17 11/19/17 11/20/17 11/21/17 11:59 11:59 11:59 11:59 Intake Total 2478 Output Total 1100 Balance 1378 Weight 83.9 kg - Lab Result Diagrams: 11/21/17 05:25 11/21/17 05:25 Lab Results-Last 24 Hrs: Lab Results-Last 24 Hours 11/21/17 11/21/17 Range/Units 05:25 05:25 WBC 7.7 (4.0-10.5) K/mm3 RBC 4.15 (4.1-5.4) M/mm3 Hgb 12.5 (12.0-16.0) gm/dl Hct 38.6 (35-47) % MCV 93.0 (78-100) fl MCH 30.1 (26-32) pg MCHC 32.4 (32-36) g/dl RDW 12.8 (11.5-14.0) % Plt Count 150 (150-450) K/mm3 MPV 11.0 H (6-9.5) fl Gran % 42.4 (36.0-66.0) % Lymphocytes % 47.3 H (24.0-44.0) % Monocytes % 4.7 (0.0-12.0) % Eosinophils % 5.2 H (0.00-5.0) % Basophils % 0.4 (0.0-0.4) % Basophils # 0.03 (0-0.4) Sodium 142 (136-145) mEq/L Potassium 4.2 (3.5-5.1) mEq/L Chloride 108 H (98-107) mEq/L Carbon Dioxide 24.6 (21-32) mEq/L Anion Gap 13.2 (5-15) MEQ/L BUN 16 (9-20) mg/dL Creatinine 1.05 (0.55-1.30) mg/dl Estimated GFR > 60 ML/MIN Glucose 116 H (70-110) MG/DL Calcium 7.8 L (8.5-10.1) mg/dL Total Bilirubin < 0.10 L (0.2-1.0) mg/dL AST 18 (15-37) U/L ALT 19 (12-78) U/L Alkaline Phosphatase 83 (46-116) U/L Serum Total Protein 5.8 L (6.4-8.2) gm/dL Albumin 2.7 L (3.4-5.0) g/dL - Procedures and Test Procedures and Tests throughout Hospitalization: Therapy Orders & Screens 11/20/17 17:56 PT Screen per Nursing Assess Comment: Protocol Order Physician Instructions: Greater than 3 points order PT Admission Screenin Reason For Exam: Triggered on Admission Diagnosis: celllulitis Open Wound/Cellutlitis/Pressure Ulcers: Yes Acute Fx/ORIF/Change in wt bearing status: No Severe MUSCULOSKELETAL pain: No ADL Dysfunction: No Acute CVA w/Hemiparesis/Hemiplegia: No Decreased Functional Mobility/Strength: No Sprain/Strain: No Acute Post-op Mobility Dysfunction: No Total Points: 5 Smoking Cessation Education Comment: Diagnosis: celllulitis Smoking Status: Current every day smoker How long have you smoked: 6 Have you smoked in the past 12 months: Yes Approximately how many cigarettes per day: 5 Do you dip or chew tobacco: No - Discharge Disposition: Home, Self-Care Condition: Good Prescriptions: New Clindamycin HCl 300 mg PO QID #40 capsule Paroxetine HCl [Paxil] 40 mg PO DAILY #30 tablet Paroxetine HCl [Paxil] 20 mg PO DAILY #4 tablet Oxycodone HCl/Acetaminophen [Percocet 5-325 mg Tablet] 1 each PO QID PRN #28 tablet MDD 4 PRN Reason: Severe Pain Continue Vits W-Ca,Fe,FA(<1Mg) [] 1 each PO DAILY Discontinued Sertraline HCl [Zoloft] 25 mg PO DAILY Follow up with: HEBERT ACEVEDO MD [ACTIVE STAFF] -
[2017-11-21] MEDS ORDERED: NON-FORMULARY ITEM (Sertraline Hcl [Zoloft] 25 MG) PO SCH (10:00)
[2017-11-21] MEDS ORDERED: ENOXAPARIN SODIUM SQ SCH (10:00)
[2017-11-21] MEDS ORDERED: NON-FORMULARY ITEM (Prenatal Vits W-Ca,Fe,Fa(<1mg) [Prenatal] 1 EACH) PO SCH (10:00)
[2017-11-21 16:20] VITALS: BP 121/61; PULSE 68; O2SAT 97
== END 2017-11-21 17:45 | disposition home or self-care (01) ==
LOC: ED 12:58 → MED SURG 16:45
PROVIDERS: ADMIT Family Medicine; ATTEND Family Medicine
DX: T81.4XXA Infection following a procedure, initial encounter (principal); Z98.890 Other specified postprocedural states; L03.311 Cellulitis of abdominal wall; Y83.8 Other surgical procedures as the cause of abnormal reaction of the patient, or of later complication, without mention of misadventure at the time of the procedure; F41.9 Anxiety disorder, unspecified
CPT/HCPCS: 36000; 36415; 74176; 80053; 81000; 82150; 83605; 83690; 83735; 85025; 85652; 87040; 87070; 87086; 96360; 96365; 96374; 96375; 99285; G0378; J0696; J1170; J1650; J2550; A9270-GY

== ENCOUNTER 2019-09-14 18:52 | Emergency (ER) | payer MEDICAID ==
[2019-09-14 19:09] VITALS: PULSE 75
--- NOTE | 2019-09-14 19:30 | ERPHSYRPT ---
- History of Present Illness Time Seen by Provider: 09/14/19 18:55 Source: patient Exam Limitations: no limitations Patient Subjective Stated Complaint: pt was opening a can of tomato sauce and can lid came up and cut base of left thumb. Triage Nursing Assessment: pt alert and oriented, wound actively bleeding. wound on base of thumb 3.5 cm long and 0.4 cm wide Physician History: Patient cut her left hand between the thumb and index finger on a tomato can lid. It is actively bleeding but does stop with direct pressure, but it gapes open without pressure. She had a tetanus booster last year she thinks. Occurred: just prior to arrival Method of Injury: incised (metal of tomato can lid) Quality: constant Severity of Pain-Max: severe Severity of Pain-Current: moderate Extremities Pain Location: hand: left Modifying Factors: Improves With: other (direct pressure). Worsens With: movement Associated Symptoms: none, No back pain, No chills, No chest discomfort, No chest pain, No dyspnea, No fever, No jaw pain, No nausea, No neck pain, No sweating, No short of breath, No vomiting Allergies/Adverse Reactions: egg Allergy (Verified 09/14/19 19:09) Sulfa (Sulfonamide Antibiotics) Allergy (Verified 09/14/19 19:09) sulfamethoxazole [From Bactrim] Allergy (Verified 09/14/19 19:09) trimethoprim [From Bactrim] Allergy (Verified 09/14/19 19:09) Hx Tetanus, Diphtheria Vaccination/Date Given: Yes (UP TO DATE) Hx Influenza Vaccination/Date Given: No Hx Pneumococcal Vaccination/Date Given: No - Review of Systems Constitutional: No Fever, No Chills Eyes: No Symptoms, No Eye Pain, No Vision Changes Ears, Nose, & Throat: No Symptoms, No Epistaxis, No Painful Swallowing Respiratory: No Cough, No Dyspnea Cardiac: No Chest Pain, No Edema, No Syncope Abdominal/Gastrointestinal: No Abdominal Pain, No Nausea, No Vomiting, No Diarrhea Genitourinary Symptoms: No Flank Pain Musculoskeletal: No Back Pain, No Neck Pain Skin: No Rash Neurological: No Dizziness, No Focal Weakness, No Sensory Changes Psychological: No Symptoms Endocrine: No Symptoms Hematologic/Lymphatic: No Easy Bleeding, No Easy Bruising All Other Systems: Reviewed and Negative - Past Medical History Pertinent Past Medical History: Yes Neurological History: No Pertinent History ENT History: No Pertinent History Cardiac History: No Pertinent History Respiratory History: No Pertinent History Endocrine Medical History: No Pertinent History Musculoskeletal History: No Pertinent History GI Medical History: No Pertinent History History: Other Psycho-Social History: Anxiety, Depression Female Reproductive Disorders: No Pertinent History Other Medical History: 30 Abruptio. Metastatic melanoma - Past Surgical History Past Surgical History: Yes Neuro Surgical History: No Pertinent History Cardiac: No Pertinent History Respiratory: No Pertinent History Gastrointestinal: No Pertinent History Musculoskeletal: No Pertinent History Female Surgical History: Section, Tubal Ligation Other Surgical History: Back Melanoma resection and lymph node resection. c section x 4 - Social History Smoking Status: Current every day smoker How long have you smoked: 6 Exposure to second hand smoke: Yes Drug Use: none Patient Lives Alone: No - Female History Hx Now: No - Nursing Vital Signs Nursing Vital Signs: Initial Vital Signs Pulse Rate 75 09/14/19 18:57 Respiratory Rate 18 09/14/19 18:57 Blood Pressure 126/68 09/14/19 18:57 O2 Sat by Pulse Oximetry 99 09/14/19 18:57 Pain Scale Pain Intensity 9 - Physical Exam General Appearance: no apparent distress, alert Eyes, Ears, Nose, Throat Exam: pharynx normal, moist mucous membranes Neck Exam: normal inspection, non-tender, supple, full range of motion Cardiovascular/Respiratory Exam: normal breath sounds, regular rate/rhythm, no respiratory distress, normal peripheral pulses Back Exam: normal inspection, No CVA tenderness, No vertebral tenderness Shoulder Exam: normal inspection, non-tender, no evidence of injury, normal ROM Elbow/Forearm Exam: normal inspection, non-tender, no evidence of injury, normal ROM Wrist Exam: normal inspection, non-tender, no evidence of injury, normal ROM Hand Exam: normal inspection, non-tender, normal ROM, laceration (left hand only , between the thumb and second finger, measures 3.5cm), No abrasions, No bone tenderness, No infection, No nail injury, No stiffness Neuro/Tendon Exam: normal sensation, normal motor functions, normal tendon functions, responds to pain Mental Status Exam: alert, oriented x 3, cooperative Skin Exam: normal color, warm, dry, No rash, No petechiae, No cyanosis SpO2 Interpretation: normal SpO2: 99 O2 Delivery: Room Air Procedures - Laceration/Wound Repair Left Hand Wound Location: Left, hand Wound Length (cm): 3.5 (between the webbing of the thumb and second finger going to the palm) Wound's Depth, Shape: linear, into subcut Irrigated: Yes Hibiclens Prep: Yes Anesthesia: local, 1% Lidocaine Volume Anesthetic (ccs): 7 Wound Debrided: none Suture Size/Type: 4-0, nylon Number of Sutures: 8 Layer Closure?: No Sterile Dressing Applied?: Yes Splint Applied?: No Sling Applied?: No - Course Nursing assessment & vital signs reviewed: Yes Ordered Tests: Active Orders 24 hr Category Date Time Status Dressing Care ROUTINE Care 09/14/19 19:24 Ordered - Progress Progress: improved Progress Note: 09/14/19 19:25 patient has no further bleeding with excellent approximation of the laceration. Patient is neurovascularly intact after laceration repair to the thumb and index finger. Counseled pt/family regarding: diagnosis, need for follow-up - Departure Departure Disposition: Home Clinical Impression: Elevated blood pressure reading without diagnosis of hypertension Laceration of left hand without complication, excluding fingers Qualifiers: Encounter type: initial encounter Qualified Code(s): S61.412A - Laceration without foreign body of left hand, initial encounter Condition: Good Critical Care Time: No Referrals: CANDY BARFIELD [Primary Care Provider] - 09/24/19 (to remove 8 sutures) Instructions: Laceration Repair With Stitches (DC), DASH Diet Additional Instructions: Discharge/Care Plan NUNO PERKINS was seen on 09/14/19 in the Emergency Room. The patient was counseled regarding Diagnosis and need for follow up in 10 days to remove 8 sutures placed and when to return to the Emergency Room. Prescriptions given: Lodine twice a day as needed; Guthrie every 6 hours as needed, dispense 8, no refills Discharge Note I have spoken with the patient and family. I have explained the patient's condition, diagnosis and treatment plan based on the information available to me at this time. I have answered the patient's and/or caregiver's questions and addressed any concerns. The patient and/or caregivers have as good understanding of the patient's diagnosis, condition and treatment plan as can be expected at this point. The vital signs have been stable. The patient's condition is stable and appropriate for discharge from the emergency department. The patient will pursue further outpatient evaluation with the primary care physician or other designated or consulting physician as outlined in the discharge instructions. The patient and/or caregivers are agreeable to this plan of care and follow-up instructions have been explained in detail. The patient and/or caregivers have received these instruction. The patient/and or caregivers are aware that any significant change in condition or worsening of symptoms should prompt an immediate return to this or the closest emergency department or call 911. Forms: Work/School Release Form Prescriptions: Hydrocodone/APAP 5-325 Tab^^^ [Guthrie 5-325 Tablet^^^] 1 tab PO Q6HPRN PRN #8 tablet MDD 6 PRN Reason: Pain Etodolac 400 mg [Lodine 400 mg] 400 mg PO BID PRN PRN #20 tablet PRN Reason: Pain
[2019-09-14 19:45] VITALS: BP 127/82; O2SAT 97
== END 2019-09-14 19:48 | disposition home or self-care (01) ==
LOC: ED 18:52
DX: S61.412A Laceration without foreign body of left hand, initial encounter (principal); W26.8XXA Contact with other sharp object(s), not elsewhere classified, initial encounter; Y93.G9 Activity, other involving cooking and grilling; R03.0 Elevated blood-pressure reading, without diagnosis of hypertension
CPT/HCPCS: 12002; 99283

== ENCOUNTER 2020-05-11 15:31 | Emergency (ER) | payer MEDICAID, OTHER ==
--- NOTE | 2020-05-11 16:11 | ERPHSYRPT ---
- History of Present Illness Time Seen by Provider: 05/11/20 15:50 Source: patient Exam Limitations: no limitations Patient Subjective Stated Complaint: pt to ER with complaints of swelling on R side of face x 3 months off and on. swelling got worse starting today. pt states she has some hearing issues off and on with swelling. denies fever, n/v or vision changes. Triage Nursing Assessment: pt A&Ox4. pt ambulatory. pt skin pwd. anxious. Physician History: Patient is a 35-year-old female presents to our ED for evaluation of swelling to her right sikhism area. Symptoms have been intermittent since for approximately 3 months. Patient was at work and noticed the swelling was much worse today. The area involvement is painless. No trauma. No fever. Patient states she has difficulty hearing and on that same side. Patient feels her memory is not normal. Patient advised that she has a history of melanoma. Her melanoma was originally excised. She later had a PET scan and was found to have a reactive lymph node on the right. The lymph node was excised. Patient is concerned that her current symptom is a manifestation of her lymphoma. Patient has not seen her oncologist in over 2 years. Patient voices no other complaints. No weight loss. No nausea or vomiting. No chest pain or shortness of breath. Patient voices no other complaints this time. Timing/Duration: intermittent Severity: moderate ENT Location: facial Prearrival Treatment: no prearrival treatment Modifying Factors: Improves With: nothing Associated Symptoms: denies symptoms Allergies/Adverse Reactions: egg Allergy (Verified 05/11/20 15:56) Sulfa (Sulfonamide Antibiotics) Allergy (Verified 05/11/20 15:56) sulfamethoxazole [From Bactrim] Allergy (Verified 05/11/20 15:56) trimethoprim [From Bactrim] Allergy (Verified 05/11/20 15:56) Hx Tetanus, Diphtheria Vaccination/Date Given: Yes Hx Influenza Vaccination/Date Given: No Hx Pneumococcal Vaccination/Date Given: No Immunizations Up to Date: Yes Travel Risk - International Travel Have you traveled outside of the country in past 3 weeks: No - Coronavirus Screening Are you exhibiting any of the following symptoms?: No Close contact with a COVID-19 positive Pt in past 14-21 Days: No - Review of Systems Constitutional: No Symptoms, No Fever, No Chills Eyes: No Symptoms Ears, Nose, & Throat: No Symptoms Respiratory: No Symptoms, No Cough, No Dyspnea Cardiac: No Symptoms, No Chest Pain, No Edema, No Syncope Abdominal/Gastrointestinal: No Symptoms, No Abdominal Pain, No Nausea, No Vomiting, No Diarrhea Genitourinary Symptoms: No Symptoms, No Dysuria Musculoskeletal: No Symptoms, No Back Pain, No Neck Pain Skin: No Symptoms, No Rash Neurological: No Symptoms, No Dizziness, No Focal Weakness, No Sensory Changes Psychological: No Symptoms Endocrine: No Symptoms Hematologic/Lymphatic: No Symptoms Immunological/Allergic: No Symptoms All Other Systems: Reviewed and Negative - Past Medical History Pertinent Past Medical History: Yes Neurological History: No Pertinent History ENT History: No Pertinent History Cardiac History: No Pertinent History Respiratory History: No Pertinent History Endocrine Medical History: No Pertinent History Musculoskeletal History: No Pertinent History GI Medical History: No Pertinent History History: No Pertinent History Psycho-Social History: Anxiety Female Reproductive Disorders: No Pertinent History Other Medical History: melanoma - Past Surgical History Past Surgical History: Yes Neuro Surgical History: No Pertinent History Cardiac: No Pertinent History Respiratory: No Pertinent History Gastrointestinal: No Pertinent History Musculoskeletal: No Pertinent History Female Surgical History: Section Other Surgical History: skin cancer removal - Social History Smoking Status: Current every day smoker How long have you smoked: 10 Exposure to second hand smoke: Yes Drug Use: none Patient Lives Alone: No - Female History Hx Now: Yes - Nursing Vital Signs Nursing Vital Signs: Initial Vital Signs Temperature 98.1 F 05/11/20 15:45 Pulse Rate 70 05/11/20 15:45 Respiratory Rate 17 05/11/20 15:45 Blood Pressure 121/85 05/11/20 15:45 O2 Sat by Pulse Oximetry 100 05/11/20 15:45 - Physical Exam General Appearance: no apparent distress, alert Eye Exam: bilateral eye: normal inspection, PERRL, EOMI Ear Exam: bilateral ear: auricle normal, canal normal, TM normal, other (Hearing acuity appears normal.) Nasal Exam: normal inspection Throat Exam: pharynx normal, moist mucus membranes, No tonsillar exudate Neck Exam: supple Cardiovascular/Respiratory Exam: normal breath sounds, regular rate/rhythm Abdominal Exam: non-tender, soft Neurologic Exam: alert, oriented x 3, cooperative, speech language pathologist II-XII nml as tested, nml cerebellar function, nml station & gait, sensation nml, No motor deficits, No s ensory deficit, No confusion Skin Exam: normal color, warm, dry SpO2 Interpretation: normal SpO2: 100 O2 Delivery: Room Air - Course Nursing assessment & vital signs reviewed: Yes - CT Exams Head CT Interpretation: Tele-radiologist Report (CT head no comps right soft tissue swelling at right temporalis muscle posttraumatic versus inflammatory process. Otherwise normal CT head..) Maxillofacial Bones CT Interpretation: Tele-radiologist Report (CT facial bones reveals right facial soft tissue swelling at the temporalis muscle possible posttraumatic versus inflammatory versus infectious. Otherwise normal.) Ordered Tests: Active Orders 24 hr Category Date Time Status FACIAL BONES WO CONTRAST [CT] Stat Exams 05/11/20 16:08 Taken HEAD WITHOUT CONTRAST [CT] Stat Exams 05/11/20 16:08 Taken HCG,QUALITATIVE URINE Stat Lab 05/11/20 16:31 Completed UA W/RFX UR CULTURE Stat Lab 05/11/20 16:31 Completed Lab/Rad Data: Laboratory Results 05/11/20 05/11/20 Range/Units 16:31 16:31 Urine Color YELLOW (YELLOW) Urine Appearance SLIGHTLY CLOUDY (CLEAR) Urine pH 6.0 (5-6) Ur Specific [place] 1.017 (1.005-1.025) Urine Protein NEGATIVE (Negative) Urine Ketones NEGATIVE (NEGATIVE) Urine Blood LARGE (0-5) Sd/ul Urine Nitrite NEGATIVE (NEGATIVE) Urine Bilirubin NEGATIVE (NEGATIVE) Urine Urobilinogen 4 (0-1) mg/dL Ur Leukocyte Esterase NEGATIVE (NEGATIVE) Urine WBC (Auto) 3-5 (0-5) /HPF Urine RBC (Auto) 0-2 (0-2) /HPF U Epithel Cells (Auto) RARE (FEW) /HPF Urine Bacteria (Auto) NONE (NEGATIVE) /HPF Urine Mucus (Auto) SLIGHT (NEGATIVE) /HPF Urine Culture Reflexed NO (NO) Urine Glucose NEGATIVE (NEGATIVE) mg/dL Urine HCG, Qual NEGATIVE (Negative) - Progress Progress: unchanged Progress Note: 05/11/20 18:15 Patient reassessed. Repeat neuro exam within normal limits. CT shows soft tissue swelling near the right temporalis muscle. Unclear etiology. There has been no trauma. Patient has no fever. The area not generating heat. There is no superimposed cellulitis. No indication for antibiotic at this time. With patient history of melanoma further work-up is mandatory. Patient will follow- up with her primary care doctor within 48 hours for reevaluation. 05/11/20 18:18 05/11/20 18:20 Hematuria was observed in a urinal patient states she is currently on her menstrual period. Will see patient in: other Counseled pt/family regarding: lab results, diagnosis, need for follow-up, rad results - Departure Departure Disposition: Home Clinical Impression: Facial swelling Condition: Stable Critical Care Time: No Referrals: CANDY BARFIELD [Primary Care Provider] - Additional Instructions: Discharge/Care Plan NUNO DONOVAN was seen on 05/11/20 in the Emergency Room. The patient was counseled regarding Diagnosis,Lab results, Imaging studies, need for follow up and when to return to the Emergency Room. Prescriptions given: Discharge Note I have spoken with the patient and/or caregivers. I have explained the patient's condition, diagnosis and treatment plan based on the information available to me at this time. I have answered the patient's and/or caregiver's questions and addressed any concerns. The patient and/or caregivers have as good understanding of the patient's diagnosis, condition and treatment plan as can be expected at this point. The vital signs have been stable. The patient's condition is stable and appropriate for discharge from the emergency department. The patient will pursue further outpatient evaluation with the primary care physician or other designated or consulting physician as outlined in the dischar ge instructions. The patient and/or caregivers are agreeable to this plan of care and follow-up instructions have been explained in detail. The patient and/or caregivers have received these instruction. The patient/and or caregivers are aware that any significant change in condition or worsening of symptoms should prompt an immediate return to this or the closest emergency department or call 911.
[2020-05-11 17:29] LABS: Appearance SLIGHTLY CLOUDY (CLEAR); Bilirubin NEGATIVE (NEGATIVE); Blood LARGE Ery/ul (0-5); Epithelial Cells RARE /HPF (FEW); Glucose NEGATIVE (NEGATIVE); Ketones NEGATIVE (NEGATIVE); Leukocyte Esterase NEGATIVE (NEGATIVE); Mucus SLIGHT /HPF (NEGATIVE); Nitrite NEGATIVE (NEGATIVE); Protein,Urine Dip NEGATIVE (Negative); RBC 0-2 /HPF (0-2); Specific Gravity 1.017 (1.005-1.025); Urobilinogen 4 mg/dL (0-1)
[2020-05-11 18:25] VITALS: BP 125/82; PULSE 72; O2SAT 99
--- NOTE | 2020-05-12 09:05 | XRAY ---
Indication: Right forehead/face swelling. Multiple contiguous axial images obtained through the head without contrast. Comparison: None Normal appearing brain parenchyma, ventricles, and bony calvarium. Visualized paranasal sinuses and mastoid air cells are clear. There is mild right temporal and right facial soft tissue swelling including the right temporalis muscle either posttraumatic versus inflammatory/infectious. No focal fluid collection or subcutaneous air. Impression: 1. Right temporal/facial and right temporalis muscle soft tissue swelling either posttraumatic versus inflammatory/infectious. 2. Remaining CT head without contrast exam is normal.
--- NOTE | 2020-05-12 09:07 | XRAY ---
Indication: Right forehead/face swelling. Multiple contiguous axial images obtained through the facial bones without contrast. Sagittal and coronal reformatted images obtained. Comparison: None No acute fracture, suspicious bony lesions, or radiopaque foreign body. Orbits including roof, steward, and floors are intact. Paranasal sinuses and nasal passages are clear. Mild S-shaped nasal septal deviation. There is mild right temporal and right facial soft tissue swelling including the right temporalis muscle either posttraumatic versus inflammatory/infectious. No focal fluid collection or subcutaneous air. CT head reported separately. Impression: 1. Right temporal/facial and right temporalis muscle soft tissue swelling either posttraumatic versus inflammatory/infectious. 2. Nasal septal deviation. 3. Remaining CT facial bones is negative.
== END 2020-05-11 18:25 | disposition home or self-care (01) ==
LOC: ED 15:31
DX: R22.0 Localized swelling, mass and lump, head (principal); Z72.0 Tobacco use; Z85.820 Personal history of malignant melanoma of skin
CPT/HCPCS: 70450; 70486; 81001; 84703; 99284

== ENCOUNTER 2021-08-30 15:50 | Emergency (ER) | payer OTHER ==
--- NOTE | 2021-08-30 16:13 | ERPHSYRPT ---
- History of Present Illness Time Seen by Provider: 08/30/21 16:13 Source: patient Exam Limitations: no limitations Physician History: This is a 36-year-old white female who has had 2-month history of right knee pain. She does not have a primary care physician. In the last month she has noticed there is been swelling in the same area. She did not suffer any acute traumatic injury or fall. She was concerned that possibility of a blood clot. She is not having shortness of breath. She has no chest pain. She has had no hemoptysis. She has no bleeding or clotting disorders. Method of Injury: other (No injury) Occurred: other (Symptoms present for over 2 months) Quality: aching (Anterior knee) Severity of Pain-Max: moderate Severity of Pain-Current: mild Lower Extremities Pain: knee: right Modifying Factors: Improves With: movement Associated Symptoms: other Allergies/Adverse Reactions: egg Allergy (Verified 05/11/20 15:56) Sulfa (Sulfonamide Antibiotics) Allergy (Verified 05/11/20 15:56) sulfamethoxazole [From Bactrim] Allergy (Verified 05/11/20 15:56) trimethoprim [From Bactrim] Allergy (Verified 05/11/20 15:56) Hx Tetanus, Diphtheria Vaccination/Date Given: Yes Hx Influenza Vaccination/Date Given: No Hx Pneumococcal Vaccination/Date Given: No Travel Risk - International Travel Have you traveled outside of the country in past 3 weeks: No - Coronavirus Screening Are you exhibiting any of the following symptoms?: No Close contact with a COVID-19 positive Pt in past 14-21 Days: No - Review of Systems Constitutional: No Symptoms Eyes: No Symptoms Ears, Nose, & Throat: No Symptoms Respiratory: No Symptoms Cardiac: No Symptoms Abdominal/Gastrointestinal: No Symptoms Genitourinary Symptoms: No Symptoms Musculoskeletal: Other (Pain and swelling anterior right knee) Neurological: No Symptoms Psychological: No Symptoms Endocrine: No Symptoms Hematologic/Lymphatic: No Symptoms Immunological/Allergic: No Symptoms All Other Systems: Reviewed and Negative - Past Medical History Pertinent Past Medical History: Yes Neurological History: No Pertinent History ENT History: No Pertinent History Cardiac History: No Pertinent History Respiratory History: No Pertinent History Endocrine Medical History: No Pertinent History Musculoskeletal History: No Pertinent History GI Medical History: No Pertinent History History: No Pertinent History Psycho-Social History: Anxiety Female Reproductive Disorders: No Pertinent History Other Medical History: melanoma - Past Surgical History Past Surgical History: Yes Neuro Surgical History: No Pertinent History Cardiac: No Pertinent History Respiratory: No Pertinent History Gastrointestinal: No Pertinent History Musculoskeletal: No Pertinent History Female Surgical History: Section Other Surgical History: skin cancer removal - Social History Smoking Status: Current every day smoker How long have you smoked: 10 Exposure to second hand smoke: Yes Drug Use: none Patient Lives Alone: No - Nursing Vital Signs Nursing Vital Signs: Initial Vital Signs Temperature 98.8 F 08/30/21 16:13 Pulse Rate 88 08/30/21 16:13 Respiratory Rate 20 08/30/21 16:13 Blood Pressure 122/84 08/30/21 16:13 O2 Sat by Pulse Oximetry 100 08/30/21 16:13 Pain Scale Pain Intensity 4 - Physical Exam General Appearance: no apparent distress, alert, anxiety Eyes, Ears, Nose, Throat Exam: normal ENT inspection, moist mucous membranes Neck Exam: normal inspection, non-tender, supple, full range of motion Cardiovascular/Respiratory Exam: chest non-tender, no respiratory distress Gastrointestinal/Abdominal Exam: non-tender Back Exam: normal inspection, normal range of motion, No CVA tenderness, No vertebral tenderness Hips Exam: bilateral: non-tender, normal inspection, normal range of motion, no evidence of injury Legs Exam: bilateral leg: non-tender, normal inspection, normal range of motion, no evidence of injury Knees Exam: right knee: soft tissue tenderness (Anterior knee), swelling (Anterior knee), left knee: non-tender, normal inspection, bilateral knee: n ormal range of motion, no evidence of injury Ankle Exam: bilateral ankle: non-tender, normal inspection, normal range of motion, no evidence of injury Foot Exam: bilateral foot: non-tender, normal inspection, normal range of motion, no evidence of injury Neuro/Tendon Exam: normal sensation, normal motor functions, normal tendon functions Mental Status Exam: alert, oriented x 3, cooperative Skin Exam: normal color, warm, dry SpO2 Interpretation: normal O2 Delivery: Room Air - Course Nursing assessment & vital signs reviewed: Yes Ordered Tests: Active Orders 24 hr Category Date Time Status KNEE (3 VIEWS) Stat Exams 08/30/21 16:26 Taken D-DIMER QUANTITATIVE Stat Lab 08/30/21 16:43 Completed Lab/Rad Data: Laboratory Results 08/30/21 Range/Units 16:43 D-Dimer 509 H* (215-500) ng/mL - Progress Progress: pain not gone completely Progress Note: 08/30/21 17:25 X-ray right knee shows no acute fracture or dislocation. - Departure Departure Disposition: Home Clinical Impression: Right anterior knee pain Condition: Stable Critical Care Time: No Additional Instructions: Ice pack to area 3 times a day for the next 48 hours. Take medication as prescribed. Call to make an appointment with a healthcare provider tomorrow morning. Prescriptions: Hydrocodone/APAP 5/325 [[place] 5/325 mg] 1 each PO Q8H PRN PRN #6 tablet MDD 3 PRN Reason: Pain Cyclobenzaprine HCl 10 mg [Cyclobenzaprine 10 MG] 10 mg PO TID #10 tablet Prednisone 10 mg [Deltasone 10 mg] 10 mg PO TID #12 tablet
[2021-08-30 17:15] VITALS: O2SAT 98
--- NOTE | 2021-08-30 17:29 | XRAY ---
Indication: Pain and swelling 2 months. Comparison: None 3 view right knee obtained. No bony, articular, or soft tissue abnormalities.
[2021-08-30 18:07] VITALS: BP 126/86; PULSE 74
== END 2021-08-30 18:05 | disposition home or self-care (01) ==
LOC: ED 15:50
DX: M25.561 Pain in right knee (principal)
CPT/HCPCS: 36415; 73562; 85379; 99283